=== PATIENT | female | born 1945 | race Caucasian/White ===

== ENCOUNTER 2018-04-06 10:22 | Inpatient (IN) | payer MEDICARE ==
[2018-04-06] MEDS ORDERED: Sodium Chloride 0.9% 2.5 ML Syringe FLUSH PRN ×2 (10:36→14:18)
[2018-04-06] MEDS ORDERED: Sodium Chloride 0.9% 10 ML Syringe FLUSH PRN ×2 (10:36→14:18)
[2018-04-06] MEDS ORDERED: Nitroglycerin 2% Oint 1 GM UD Packet TOP ONE (10:38)
--- NOTE | 2018-04-06 10:44 | EDM.PDOC ---
ED HPI GENERAL MEDICAL PROBLEM - General Chief Complaint: Respiratory Problem Stated Complaint: AMBULANCE Time Seen by Provider: 04/06/18 10:25 - History of Present Illness INITIAL COMMENTS - FREE TEXT/NARRATIVE: HISTORY AND PHYSICAL: History of present illness: The patient is a 72-year-old female who follows at [facility] with Dr. Ratliff and has a history of diabetes hypertension hypothyroidism and CHF who is scheduled to meet with Dr. Sarmiento next week for the start of hospice care and presents via EMS complaints of 2 weeks of lower extremity edema and progressive shortness of breath for the last 2 weeks. She is currently taking Lasix 40 mg a day and says that that dose was adjusted by her provider recently and she is not having chest pain fevers chills cough abdominal pain vomiting or diarrhea. When asked why she specifically here today she says she is just tired of being short of breath and tired of being sick. The patient has been eating and drinking her norm and she says that she does produce urine with the Lasix but it doesn't seem to be as much as it should be. The patient sleeps in a recliner every night because of her shortness of breath and says that she can't get comfortable in bed. She has no specific leg pain but has the lower extremity edema which has been progressive. No neurosensory changes in her extremities neck or back pain and no recent trauma. EMS could not get an IV [place] no medications were given in route. Review of systems: As per history of present illness and below otherwise all systems reviewed and negative. Past medical history: As per history of present illness and as reviewed below otherwise noncontributory. Surgical history: As per history of present illness and as reviewed below otherwise noncontributory. Social history: No reported history of drug or alcohol abuse. Family history: As per history of present illness and as reviewed below otherwise noncontributory. Physical exam: General: Well-developed well-nourished mildly overweight female who is nontoxic and vital signs are noted by me. The patient is speaking clearly and easily without breathlessness. HEENT: Atraumatic, normocephalic, negative for conjunctival pallor or scleral icterus, mucous membranes moist, throat clear, neck supple, nontender, trachea midline. Lungs: Clear to auscultation in the [place] and in the bases there are rails bilaterally approximately 1/4-1/3 up, there is no work of breathing stridor or wheezing, breath sounds equal bilaterally, chest nontender. Heart: S1S2, regular rhythm slightly tachycardic rate of my evaluation but no overt murmurs were appreciated Abdomen: Soft, nondistended, nontender. Tightly hypoactive bowel sounds Negative for costovertebral tenderness. Pelvis: Stable nontender. Genitourinary: Deferred. Rectal: Deferred. Extremities: Atraumatic, negative for cords or calf pain. Neurovascular unremarkable. There is pitting edema from the knees to the feet to to 3+ without leg asymmetry and there are no bones appreciated. Cap refill and temperature are normal on palpation Neuro: Awake, alert, oriented. Cranial nerves II through XII unremarkable. Cerebellum unremarkable. Motor and sensory unremarkable throughout. Exam nonfocal. Skin: There is normal turgor and no evidence of any diaphoresis Diagnostics: EKG CBC CMP BNP INR troponin chest x-ray [employer]A [employer]: IV O2 monitor nitro paste Lasix Heart Rate has normalized while in the ED. We'll continue to monitor the patient 's vitals and testing results for disposition Patient is feeling improved with the Nitropaste. She was assisted up to the bathroom and back and did not get short of breath. She was given a sandwich and also feels better from that standpoint and we are currently awaiting the remainder of the tests and we'll disposition for admission 1215: This was discussed with our hospitalist Dr. Still who accepts the patient for observation telemetry admission. She would like me to give a dose of Lasix. I discussed testing results with the patient and son at bedside and they are aware of care plan for admission. Patient overall looks much improved. Impression: Progressive shortness of breath with peripheral edema, exacerbation of CHF Definitive disposition and diagnosis as appropriate pending reevaluation and review of above. - Related Data Allergies Allergy/AdvReac Type Severity Reaction Status Date / Time morphine Allergy Cannot Verified 04/06/18 10:33 Remember Sulfa (Sulfonamide Allergy Cannot Verified 04/06/18 10:33 Antibiotics) Remember Home Meds: Home Meds Furosemide 40 mg PO DAILY 04/06/18 [History] LORazepam [LORazepam Intensol] 0.5 mg PO Q2HR PRN 04/06/18 [History] Liothyronine [Cytomel] 1.5 mcg PO DAILY 04/06/18 [History] Ondansetron [Zofran ODT] 4 mg PO Q6H PRN 04/06/18 [History] Sennosides [Senna] 1 tab PO BID 04/06/18 [History] oxyCODONE HCl [Oxycodone HCl] 1 mg PO Q2H PRN 04/06/18 [History] ED ROS GENERAL - Review of Systems Review Of Systems: ROS reveals no pertinent complaints other than HPI. ED EXAM, GENERAL - Physical Exam Exam: See Below (see dictation) Course - Vital Signs Last Recorded V/S: Last Vital Signs Temp 36.3 C 04/06/18 10:33 Pulse 86 04/06/18 11:29 Resp 16 04/06/18 11:29 BP 152/101 H 04/06/18 10:33 Pulse Ox 97 04/06/18 11:29 - Orders/Labs/Meds Orders: Active Orders 24 hr Category Date Time Status Patient Status [ADT] Stat ADT 04/06/18 12:17 Ordered Cardiac Monitoring [RC] . DIRECTED Care 04/06/18 10:36 Active EKG Documentation Completion [RC] STAT Care 04/06/18 10:36 Active Oxygen Therapy, ED [RC] ASDIRECTED Care 04/06/18 10:36 Active Pulse Oximetry [RC] ASDIRECTED Care 04/06/18 10:36 Active Chest 1V Frontal [CR] Stat Exams 04/06/18 10:36 Taken UA W/MICROSCOPIC [URIN] Stat Lab 04/06/18 12:04 Ordered Furosemide [Lasix] Med 04/06/18 12:17 Once 60 mg IVPUSH NOW ONE Sodium Chloride 0.9% [Saline Flush] Med 04/06/18 10:36 Active 10 ml FLUSH ASDIRECTED PRN Sodium Chloride 0.9% [Saline Flush] Med 04/06/18 10:36 Active 2.5 ml FLUSH ASDIRECTED PRN Saline Lock Insert [OM.PC] Stat Oth 04/06/18 10:36 Ordered Medication Orders Sodium Chloride (Saline Flush) 10 ml FLUSH ASDIRECTED PRN PRN Reason: Keep Vein Open Last Admin: 04/06/18 10:52 Dose: 10 ml Sodium Chloride (Saline Flush) 2.5 ml FLUSH ASDIRECTED PRN PRN Reason: Keep Vein Open Last Admin: 04/06/18 10:52 Dose: 2.5 ml Labs: Laboratory Tests 04/06/18 04/06/18 04/06/18 Range/Units 10:55 10:55 10:55 WBC 11.78 H (4.0-11.0) K/uL RBC 4.65 (4.30-5.90) M/uL Hgb 13.1 (12.0-16.0) g/dL Hct 41.0 (36.0-46.0) % MCV 88.2 (80.0-98.0) fL MCH 28.2 (27.0-32.0) pg MCHC 32.0 (31.0-37.0) g/dL RDW Std Deviation 56.5 (28.0-62.0) fl RDW Coeff of Jalen 18 H (11.0-15.0) % Plt Count 242 (150-400) K/uL MPV 10.90 (7.40-12.00) fL Neut % (Auto) 75.4 (48.0-80.0) % Lymph % (Auto) 15.8 L (16.0-40.0) % [place] % (Auto) 7.1 (0.0-15.0) % Eos % (Auto) 1.5 (0.0-7.0) % Baso % (Auto) 0.2 (0.0-1.5) % Neut # (Auto) 8.9 H (1.4-5.7) K/uL Lymph # (Auto) 1.9 (0.6-2.4) K/uL [place] # (Auto) 0.8 (0.0-0.8) K/uL Eos # (Auto) 0.2 (0.0-0.7) K/uL Baso # (Auto) 0.0 (0.0-0.1) K/uL Nucleated RBC % 0.0 /100WBC Nucleated RBCs # 0 K/uL INR 1.17 Sodium 136 (136-145) mmol/L Potassium 4.1 (3.5-5.1) mmol/L Chloride 102 (98-107) mmol/L Carbon Dioxide 27.3 (21.0-32.0) mmol/L BUN 26 H (7.0-18.0) mg/dL Creatinine 1.3 H (0.6-1.0) mg/dL Est Cr Clr Drug Dosing 36.62 mL/min Estimated GFR (MDRD) 40.3 ml/min Glucose 247 H (74-106) mg/dL Calcium 8.3 L (8.5-10.1) mg/dL Total Bilirubin 0.8 (0.2-1.0) mg/dL AST 13 L (15-37) IU/L ALT 19 (14-63) IU/L Alkaline Phosphatase 109 (46-116) U/L Troponin I < 0.050 (0.000-0.056) ng/mL B-Natriuretic Peptide (<100) PG/ML Total Protein 6.3 L (6.4-8.2) g/dL Albumin 2.8 L (3.4-5.0) g/dL Globulin 3.5 (2.0-3.5) g/dL Albumin/Globulin Ratio 0.8 L (1.3-2.8) Urine Color Urine Appearance Urine pH (5.0-8.0) Ur Specific [place] (1.001-1.035) Urine Protein (NEGATIVE) mg/dL Urine Glucose (UA) (NEGATIVE) mg/dL Urine Ketones (NEGATIVE) mg/dL Urine Occult Blood (NEGATIVE) Urine Nitrite (NEGATIVE) Urine Bilirubin (NEGATIVE) Urine Urobilinogen (<2.0) EU/dL Ur Leukocyte Esterase (NEGATIVE) Urine RBC (0-2/HPF) Urine WBC (0-5/HPF) Ur Epithelial Cells (NONE-FEW) Urine Bacteria (NEGATIVE) 04/06/18 04/06/18 Range/Units 10:55 12:04 WBC (4.0-11.0) K/uL RBC (4.30-5.90) M/uL Hgb (12.0-16.0) g/dL Hct (36.0-46.0) % MCV (80.0-98.0) fL MCH (27.0-32.0) pg MCHC (31.0-37.0) g/dL RDW Std Deviation (28.0-62.0) fl RDW Coeff of Jalen (11.0-15.0) % Plt Count (150-400) K/uL MPV (7.40-12.00) fL Neut % (Auto) (48.0-80.0) % Lymph % (Auto) (16.0-40.0) % [place] % (Auto) (0.0-15.0) % Eos % (Auto) (0.0-7.0) % Baso % (Auto) (0.0-1.5) % Neut # (Auto) (1.4-5.7) K/uL Lymph # (Auto) (0.6-2.4) K/uL [place] # (Auto) (0.0-0.8) K/uL Eos # (Auto) (0.0-0.7) K/uL Baso # (Auto) (0.0-0.1) K/uL Nucleated RBC % /100WBC Nucleated RBCs # K/uL INR Sodium (136-145) mmol/L Potassium (3.5-5.1) mmol/L Chloride (98-107) mmol/L Carbon Dioxide (21.0-32.0) mmol/L BUN (7.0-18.0) mg/dL Creatinine (0.6-1.0) mg/dL Est Cr Clr Drug Dosing mL/min Estimated GFR (MDRD) ml/min Glucose (74-106) mg/dL Calcium (8.5-10.1) mg/dL Total Bilirubin (0.2-1.0) mg/dL AST (15-37) IU/L ALT (14-63) IU/L Alkaline Phosphatase (46-116) U/L Troponin I (0.000-0.056) ng/mL B-Natriuretic Peptide 3166 H (<100) PG/ML Total Protein (6.4-8.2) g/dL Albumin (3.4-5.0) g/dL Globulin (2.0-3.5) g/dL Albumin/Globulin Ratio (1.3-2.8) Urine Color YELLOW Urine Appearance CLEAR Urine pH 6.0 (5.0-8.0) Ur Specific [place] 1.015 (1.001-1.035) Urine Protein TRACE (NEGATIVE) mg/dL Urine Glucose (UA) NEGATIVE (NEGATIVE) mg/dL Urine Ketones NEGATIVE (NEGATIVE) mg/dL Urine Occult Blood NEGATIVE (NEGATIVE) Urine Nitrite NEGATIVE (NEGATIVE) Urine Bilirubin NEGATIVE (NEGATIVE) Urine Urobilinogen 0.2 (<2.0) EU/dL Ur Leukocyte Esterase NEGATIVE (NEGATIVE) Urine RBC 0-2 (0-2/HPF) Urine WBC 0-3 (0-5/HPF) Ur Epithelial Cells FEW (NONE-FEW) Urine Bacteria FEW (NEGATIVE) Meds: Medications Generic Name Dose Route Start Last Admin Trade Name Leighann PRN Reason Stop Dose Admin Sodium Chloride 10 ml 04/06/18 10:36 04/06/18 10:52 Saline Flush FLUSH 10 ml ASDIRECTED PRN Administration Keep Vein Open Sodium Chloride 2.5 ml 04/06/18 10:36 04/06/18 10:52 Saline Flush FLUSH 2.5 ml ASDIRECTED PRN Administration Keep Vein Open Discontinued Medications Generic Name Dose Route Start Last Admin Trade Name Freq PRN Reason Stop Dose Admin Lidocaine HCl Confirm 04/06/18 11:04 Xylocaine-Mpf 1% Administered 04/06/18 11:05 Dose 5 mls @ as directed .ROUTE .STK-MED ONE Lidocaine HCl 5 ml 04/06/18 11:05 04/06/18 11:06 Xylocaine-Mpf 1% INJECT 04/06/18 11:06 5 ml ONETIME ONE Administration Nitroglycerin 1 gm 04/06/18 10:38 04/06/18 10:49 Nitro-Bid 2% TOP 04/06/18 10:39 1 gm ONETIME ONE Administration Departure - Departure Time of Disposition: 12:21 Disposition: Refer to Observation Condition: Good Clinical Impression: Congestive heart failure Qualifiers: Heart failure type: unspecified Heart failure chronicity: acute on chronic Qualified Code(s): I50.9 - Heart failure, unspecified - Discharge Information Referrals: Chuck Sarmiento MD [Primary Care Provider] - Forms: ED Department Discharge - My Orders Last 24 Hours: My Active Orders 04/06/18 10:36 Cardiac Monitoring [RC] . DIRECTED EKG Documentation Completion [RC] STAT Oxygen Therapy, ED [RC] ASDIRECTED Pulse Oximetry [RC] ASDIRECTED Chest 1V Frontal [CR] Stat Sodium Chloride 0.9% [Saline Flush] 10 ml FLUSH ASDIRECTED PRN Sodium Chloride 0.9% [Saline Flush] 2.5 ml FLUSH ASDIRECTED PRN Saline Lock Insert [OM.PC] Stat 04/06/18 12:04 UA W/MICROSCOPIC [URIN] Stat 04/06/18 12:17 Patient Status [ADT] Stat Furosemide [Lasix] 60 mg IVPUSH NOW ONE - Assessment/Plan Last 24 Hours: My Active Orders 04/06/18 10:36 Cardiac Monitoring [RC] . DIRECTED EKG Documentation Completion [RC] STAT Oxygen Therapy, ED [RC] ASDIRECTED Pulse Oximetry [RC] ASDIRECTED Chest 1V Frontal [CR] Stat Sodium Chloride 0.9% [Saline Flush] 10 ml FLUSH ASDIRECTED PRN Sodium Chloride 0.9% [Saline Flush] 2.5 ml FLUSH ASDIRECTED PRN Saline Lock Insert [OM.PC] Stat 04/06/18 12:04 UA W/MICROSCOPIC [URIN] Stat 04/06/18 12:17 Patient Status [ADT] Stat Furosemide [Lasix] 60 mg IVPUSH NOW ONE
[2018-04-06 11:39] LABS: CHLORIDE,CL 102 mmol/L (98-107); SODIUM,NA 136 mmol/L (136-145)
--- NOTE | 2018-04-06 12:08 | PCM.SN ---
- Free Text/Narrative Note: IV start request due to inability to obtain access by staff in EOD. Attempts to R FA and hand unsuccessful. IV access to R FA with 22 g IV catheter obtained on third attempt. Blood return observed and flushes easily. Pt trish well with lidocaine SQ prior to attempts.
[2018-04-06] MEDS ORDERED: Furosemide 40 MG/4 ML VIAL IVPUSH ONE (12:17)
--- NOTE | 2018-04-06 13:42 | PCM.HP ---
H&P History of Present Illness - General Date of Service: 04/06/18 Admit Problem/Dx: Admission Diagnosis/Problem Admission Diagnosis/Problem Congestive heart failure Source of Information: Patient - History of Present Illness Initial Comments - Free Text/Narative: Patient is 72 years old female old says she was on hospice for the month, and due to advanced heart failure , with coronary artery disease, status post CABG, who traveled from [place] to [facility] 2 weeks ago presented to hospital due to increased shortness of breath. Patient was put in hospice because she was told her ejection fraction is 10%, but after she was placed in hospice she continued to improved and she was feeling pretty well until lately when she became short of breath. Patient is able to ambulate on her own and all her medications were stopped 1 1/2 mo ago when she was placed on hospice . In July she drove herself with her truck to [place] and [place]. She also has history of arterial fibrillation and used to be on chronic anticoagulation with eliquis . Denies chest pain. She would like to come off hospice and try to be medically optimized and see it operations specialist on Monday. She wants to have Sidhu catheter and diuresed to get back to her normal weight, denies fever, denies chills denies chest pain. She gained 20 lbs fluid overload since she stopped her home medications Onset of Symptoms: Reports: Gradual Location: Reports: Chest - Related Data Allergies/Adverse Reactions: Allergies Allergy/AdvReac Type Severity Reaction Status Date / Time morphine Allergy Cannot Verified 04/06/18 10:33 Remember Sulfa (Sulfonamide Allergy Cannot Verified 04/06/18 10:33 Antibiotics) Remember Home Medications: Home Meds Furosemide 40 mg PO DAILY 04/06/18 [History] LORazepam [LORazepam Intensol] 0.5 mg PO Q2HR PRN 04/06/18 [History] Levothyroxine 150 mcg PO ACBREAKFAST 04/06/18 [History] Liothyronine [Cytomel] 1.5 tab PO DAILY 04/06/18 [History] Ondansetron [Zofran ODT] 4 mg PO Q6H PRN 04/06/18 [History] Sennosides [Senna] 1 tab PO DAILY 04/06/18 [History] oxyCODONE HCl [Oxycodone HCl] 1 mg PO Q2H PRN 04/06/18 [History] Past Medical History Cardiovascular History: Reports: Heart Failure, Hypertension Endocrine/Metabolic History: Reports: Diabetes, Type II - Infectious Disease History Infectious Disease History: Reports: None - Past Surgical History GI Surgical History: Reports: Bariatric Procedure Social & Family History - Family History Family Medical History: Noncontributory - Tobacco Use Smoking Status *Q: Never Smoker - Recreational Drug Use Recreational Drug Use: No H&P Review of Systems - Review of Systems: Review Of Systems: See Below General: Reports: Weight Gain HEENT: Reports: No Symptoms Pulmonary: Reports: Shortness of Breath Cardiovascular: Reports: Dyspnea on Exertion, Orthopnea Gastrointestinal: Reports: No Symptoms Musculoskeletal: Reports: No Symptoms Skin: Reports: No Symptoms Psychiatric: Reports: No Symptoms Neurological: Reports: No Symptoms Hematologic/Lymphatic: Reports: No Symptoms Immunologic: Reports: No Symptoms Exam - Exam Exam: See Below - Vital Signs Vital Signs: Last Vital Signs Temp 97.4 F 04/06/18 10:33 Pulse 76 04/06/18 12:34 Resp 16 04/06/18 12:34 BP 116/78 04/06/18 12:34 Pulse Ox 98 04/06/18 12:34 Weight: 213 lb 6.519 oz - Exam General: Alert, Oriented HEENT: Conjunctiva Clear Neck: Supple, Trachea Midline, JVD Lungs: Crackles Cardiovascular: Regular Rate, Regular Rhythm, Normal S1, Normal S2, Gallop/S3 GI/Abdominal Exam: Normal Bowel Sounds Back Exam: Normal Inspection Extremities: Pedal Edema (leg edema 3+) - Patient Data Lab Results Last 24 hrs: Laboratory Results - last 24 hr 04/06/18 04/06/18 04/06/18 Range/Units 10:55 10:55 10:55 WBC 11.78 H (4.0-11.0) K/uL RBC 4.65 (4.30-5.90) M/uL Hgb 13.1 (12.0-16.0) g/dL Hct 41.0 (36.0-46.0) % MCV 88.2 (80.0-98.0) fL MCH 28.2 (27.0-32.0) pg MCHC 32.0 (31.0-37.0) g/dL RDW Std Deviation 56.5 (28.0-62.0) fl RDW Coeff of Jalen 18 H (11.0-15.0) % Plt Count 242 (150-400) K/uL MPV 10.90 (7.40-12.00) fL Neut % (Auto) 75.4 (48.0-80.0) % Lymph % (Auto) 15.8 L (16.0-40.0) % [place] % (Auto) 7.1 (0.0-15.0) % Eos % (Auto) 1.5 (0.0-7.0) % Baso % (Auto) 0.2 (0.0-1.5) % Neut # (Auto) 8.9 H (1.4-5.7) K/uL Lymph # (Auto) 1.9 (0.6-2.4) K/uL [place] # (Auto) 0.8 (0.0-0.8) K/uL Eos # (Auto) 0.2 (0.0-0.7) K/uL Baso # (Auto) 0.0 (0.0-0.1) K/uL Nucleated RBC % 0.0 /100WBC Nucleated RBCs # 0 K/uL INR 1.17 Sodium 136 (136-145) mmol/L Potassium 4.1 (3.5-5.1) mmol/L Chloride 102 (98-107) mmol/L Carbon Dioxide 27.3 (21.0-32.0) mmol/L BUN 26 H (7.0-18.0) mg/dL Creatinine 1.3 H (0.6-1.0) mg/dL Est Cr Clr Drug Dosing 36.62 mL/min Estimated GFR (MDRD) 40.3 ml/min Glucose 247 H (74-106) mg/dL Calcium 8.3 L (8.5-10.1) mg/dL Total Bilirubin 0.8 (0.2-1.0) mg/dL AST 13 L (15-37) IU/L ALT 19 (14-63) IU/L Alkaline Phosphatase 109 (46-116) U/L Troponin I < 0.050 (0.000-0.056) ng/mL B-Natriuretic Peptide (<100) PG/ML Total Protein 6.3 L (6.4-8.2) g/dL Albumin 2.8 L (3.4-5.0) g/dL Globulin 3.5 (2.0-3.5) g/dL Albumin/Globulin Ratio 0.8 L (1.3-2.8) Urine Color Urine Appearance Urine pH (5.0-8.0) Ur Specific [place] (1.001-1.035) Urine Protein (NEGATIVE) mg/dL Urine Glucose (UA) (NEGATIVE) mg/dL Urine Ketones (NEGATIVE) mg/dL Urine Occult Blood (NEGATIVE) Urine Nitrite (NEGATIVE) Urine Bilirubin (NEGATIVE) Urine Urobilinogen (<2.0) EU/dL Ur Leukocyte Esterase (NEGATIVE) Urine RBC (0-2/HPF) Urine WBC (0-5/HPF) Ur Epithelial Cells (NONE-FEW) Urine Bacteria (NEGATIVE) 04/06/18 04/06/18 Range/Units 10:55 12:04 WBC (4.0-11.0) K/uL RBC (4.30-5.90) M/uL Hgb (12.0-16.0) g/dL Hct (36.0-46.0) % MCV (80.0-98.0) fL MCH (27.0-32.0) pg MCHC (31.0-37.0) g/dL RDW Std Deviation (28.0-62.0) fl RDW Coeff of Jalen (11.0-15.0) % Plt Count (150-400) K/uL MPV (7.40-12.00) fL Neut % (Auto) (48.0-80.0) % Lymph % (Auto) (16.0-40.0) % [place] % (Auto) (0.0-15.0) % Eos % (Auto) (0.0-7.0) % Baso % (Auto) (0.0-1.5) % Neut # (Auto) (1.4-5.7) K/uL Lymph # (Auto) (0.6-2.4) K/uL [place] # (Auto) (0.0-0.8) K/uL Eos # (Auto) (0.0-0.7) K/uL Baso # (Auto) (0.0-0.1) K/uL Nucleated RBC % /100WBC Nucleated RBCs # K/uL INR Sodium (136-145) mmol/L Potassium (3.5-5.1) mmol/L Chloride (98-107) mmol/L Carbon Dioxide (21.0-32.0) mmol/L BUN (7.0-18.0) mg/dL Creatinine (0.6-1.0) mg/dL Est Cr Clr Drug Dosing mL/min Estimated GFR (MDRD) ml/min Glucose (74-106) mg/dL Calcium (8.5-10.1) mg/dL Total Bilirubin (0.2-1.0) mg/dL AST (15-37) IU/L ALT (14-63) IU/L Alkaline Phosphatase (46-116) U/L Troponin I (0.000-0.056) ng/mL B-Natriuretic Peptide 3166 H (<100) PG/ML Total Protein (6.4-8.2) g/dL Albumin (3.4-5.0) g/dL Globulin (2.0-3.5) g/dL Albumin/Globulin Ratio (1.3-2.8) Urine Color YELLOW Urine Appearance CLEAR Urine pH 6.0 (5.0-8.0) Ur Specific [place] 1.015 (1.001-1.035) Urine Protein TRACE (NEGATIVE) mg/dL Urine Glucose (UA) NEGATIVE (NEGATIVE) mg/dL Urine Ketones NEGATIVE (NEGATIVE) mg/dL Urine Occult Blood NEGATIVE (NEGATIVE) Urine Nitrite NEGATIVE (NEGATIVE) Urine Bilirubin NEGATIVE (NEGATIVE) Urine Urobilinogen 0.2 (<2.0) EU/dL Ur Leukocyte Esterase NEGATIVE (NEGATIVE) Urine RBC 0-2 (0-2/HPF) Urine WBC 0-3 (0-5/HPF) Ur Epithelial Cells FEW (NONE-FEW) Urine Bacteria FEW (NEGATIVE) Result Diagrams: 04/06/18 10:55 04/06/18 10:55 EKG INTERPRETATION EKG Date: 04/06/18 Rhythm: NSR - Problem List (1) Systolic CHF, acute on chronic SNOMED Code(s): 949866066, 107722155 ICD Code: I50.23 - ACUTE ON CHRONIC SYSTOLIC (CONGESTIVE) HEART FAILURE Status: Acute Current Visit: Yes (2) CAD (coronary artery disease) of artery bypass graft SNOMED Code(s): 071934276, 53283013, 782770865, 311418089, 771518418 ICD Code: I25.810 - ATHEROSCLEROSIS OF CABG W/O ANGINA PECTORIS Status: Acute Current Visit: Yes (3) Paroxysmal A-fib SNOMED Code(s): 862042891 ICD Code: I48.0 - PAROXYSMAL ATRIAL FIBRILLATION Status: Acute Current Visit: Yes (4) Diabetes mellitus SNOMED Code(s): 73286392 ICD Code: E11.9 - TYPE 2 DIABETES MELLITUS WITHOUT COMPLICATIONS Status: Acute Current Visit: Yes (5) Hypothyroidism SNOMED Code(s): 78873516 ICD Code: E03.9 - HYPOTHYROIDISM, UNSPECIFIED Status: Acute Current Visit : Yes Problem List Initiated/Reviewed/Updated: Yes Orders Last 24hrs: Active Orders 24 hr Category Date Time Status Patient Status [ADT] Stat ADT 04/06/18 12:17 Active Cardiac Monitoring [RC] . DIRECTED Care 04/06/18 10:36 Active EKG Documentation Completion [RC] STAT Care 04/06/18 10:36 Active Pulse Oximetry [RC] ASDIRECTED Care 04/06/18 10:36 Active Telemetry Monitoring [Cardiac Monitoring] [RC] . Care 04/06/18 13:32 Active DIRECTED Chest 1V Frontal [CR] Stat Exams 04/06/18 10:36 Taken UA W/MICROSCOPIC [URIN] Stat Lab 04/06/18 12:04 Ordered Sodium Chloride 0.9% [Saline Flush] Med 04/06/18 10:36 Active 10 ml FLUSH ASDIRECTED PRN Sodium Chloride 0.9% [Saline Flush] Med 04/06/18 10:36 Active 2.5 ml FLUSH ASDIRECTED PRN Saline Lock Insert [OM.PC] Stat Oth 04/06/18 10:36 Ordered Medication Orders Sodium Chloride (Saline Flush) 10 ml FLUSH ASDIRECTED PRN PRN Reason: Keep Vein Open Last Admin: 04/06/18 10:52 Dose: 10 ml Sodium Chloride (Saline Flush) 2.5 ml FLUSH ASDIRECTED PRN PRN Reason: Keep Vein Open Last Admin: 04/06/18 10:52 Dose: 2.5 ml Assessment/Plan Comment:: Plan admit patient to medical telemetry and will start patient on Lasix 60 mg IV every 12 hours, we put Sidhu catheter and give patient potassium 40 mEq by mouth or daily, we'll order cardiac echo and patient may need cardiology consult on Monday. We'll also need to monitor magnesium For history of A. fib paroxysmal patient will need anticoagulation with eliquis 5 mg by mouth twice a BID For hypothyroidism patient will be restarted on her home dose of thyroid medication seen. 150 mg by mouth daily For diabetes mellitus patient will be started on insulin on sliding scale before meals and at bedtime Deconditioning patient will need physical therapy in a patient on therapy when medically stable
[2018-04-06] MEDS ORDERED: Morphine 10 MG/ML Syringe IVPUSH PRN (14:18)
[2018-04-06] MEDS ORDERED: Acetaminophen 325 MG Tab PO PRN (14:18)
[2018-04-06] MEDS ORDERED: Docusate Sodium 100 MG Cap PO PRN (14:18)
[2018-04-06] MEDS ORDERED: Ondansetron 4 MG/2 ML SDV IVPUSH PRN (14:18)
[2018-04-06] MEDS ORDERED: LORazepam Conc Solution 2 MG/ML 30 ML Bottle PO PRN (14:20)
[2018-04-06] MEDS ORDERED: Enoxaparin 40 MG/0.4 ML Syringe SUBCUT SCH (14:30)
[2018-04-06] MEDS: Furosemide 40 MG/4 ML VIAL IVPUSH SCH (20:46)
[2018-04-06] MEDS: Apixaban 5 MG Tab PO SCH (20:56)
[2018-04-06] MEDS ORDERED: cefTRIAXone 1,000 MG in Sodium Chloride 0.9% 50 ML IV SCH (21:00)
[2018-04-06] MEDS ORDERED: cefTRIAXone 1 GM in Premix Bag 1 BAG IV SCH (21:00)
[2018-04-06] MEDS ORDERED: Insulin Aspart 100 Units/ML 3 ML Pen SUBCUT SCH (21:00)
[2018-04-06] MEDS: Insulin Aspart 100 Units/ML 3 ML Pen SUBCUT SCH (21:16)
--- NOTE | 2018-04-06 21:26 | CR ---
EXAM DATE: 04/06/18 PATIENT'S AGE: 72 Patient: GLEN MILLER Facility: [place], [place] Site . Site : 1945 Study: XRay Chest [id number]/24/2018 11:28:04 AM Ordering Physician: Jag Lamas Final Report: INDICATION: Chest pain; shortness of breath. COMPARISON: None. TECHNIQUE: Portable AP chest. FINDINGS: Cardiomegaly. Status post median sternotomy. CHF with bilateral pleural effusion . Impression : Cardiomegaly. CHF with bilateral pleural effusions. Dictated by Cristo Rodriguez MD @ Apr 06 2018 11:37AM (Electronic Signature) Report Signed by Proxy. [facility]
[2018-04-07] MEDS: Insulin Aspart 100 Units/ML 3 ML Pen SUBCUT SCH ×4 (06:32→21:23)
[2018-04-07] MEDS: Levothyroxine 75 MCG Tab PO SCH (06:53)
[2018-04-07] MEDS ORDERED: Levothyroxine 100 MCG Tab PO SCH (07:30)
[2018-04-07] MEDS ORDERED: Levothyroxine 75 MCG Tab PO SCH (07:30)
[2018-04-07] MEDS ORDERED: Levothyroxine 150 MCG Tab PO SCH ×2 (07:30)
[2018-04-07] MEDS: Apixaban 5 MG Tab PO SCH ×2 (08:37→21:06)
[2018-04-07] MEDS: Potassium Chloride 20 MEQ Tab.ER PO SCH (08:37)
[2018-04-07] MEDS: Sennosides 8.6 MG Tab PO SCH (08:37)
[2018-04-07] MEDS: Furosemide 40 MG/4 ML VIAL IVPUSH SCH ×2 (10:39→20:56)
[2018-04-07] MEDS ORDERED: Diltiazem 25 MG/5 ML SDV IVPUSH ONE ×2 (11:36→21:13)
--- NOTE | 2018-04-07 13:06 | PCM.PRNOTE ---
- Free Text/Narrative Note: Anes Note I was called to perform IV access on this patietn with known difficult veins. I placed a 22 tn left forarm. Miguel Angel Shanks HEMATOLOGY NURSE
--- NOTE | 2018-04-07 14:01 | PCM.PN ---
- General Info Date of Service: 04/07/18 Subjective Update: Patient says she is feeling cold , her heart is tachycardia , EKG done showed a a flutter and heart rate goes as high as 140 I and O negative 3500 cc , Co2 on BMP is around 35 Still sob - Review of Systems General: Reports: Fatigue HEENT: Reports: No Symptoms Pulmonary: Reports: Shortness of Breath Cardiovascular: Reports: Dyspnea on Exertion, Edema Gastrointestinal: Reports: No Symptoms Genitourinary: Reports: No Symptoms Musculoskeletal: Reports: No Symptoms Skin: Reports: No Symptoms Psychiatric: Reports: No Symptoms - Patient Data Vitals - Most Recent: Last Vital Signs Temp 97.8 F 04/07/18 12:00 Pulse 89 04/07/18 12:00 Resp 18 04/07/18 12:00 BP 118/84 04/07/18 12:00 Pulse Ox 98 04/07/18 12:00 Weight - Most Recent: 196 lb 6.4 oz I&O - Last 24 Hours: Intake & Output 04/06/18 04/07/18 04/07/18 22:59 06:59 14:59 Intake Total 100 450 Output Total 1150 2600 Balance -1050 -2150 Lab Results Last 24 Hours: Laboratory Results - last 24 hr 04/06/18 04/06/18 04/06/18 Range/Units 10:55 16:24 16:44 WBC (4.0-11.0) K/uL RBC (4.30-5.90) M/uL Hgb (12.0-16.0) g/dL Hct (36.0-46.0) % MCV (80.0-98.0) fL MCH (27.0-32.0) pg MCHC (31.0-37.0) g/dL RDW Std Deviation (28.0-62.0) fl RDW Coeff of Jalen (11.0-15.0) % Plt Count (150-400) K/uL MPV (7.40-12.00) fL Neut % (Auto) (48.0-80.0) % Lymph % (Auto) (16.0-40.0) % Crenshaw % (Auto) (0.0-15.0) % Eos % (Auto) (0.0-7.0) % Baso % (Auto) (0.0-1.5) % Neut # (Auto) (1.4-5.7) K/uL Lymph # (Auto) (0.6-2.4) K/uL Crenshaw # (Auto) (0.0-0.8) K/uL Eos # (Auto) (0.0-0.7) K/uL Baso # (Auto) (0.0-0.1) K/uL Nucleated RBC % /100WBC Nucleated RBCs # K/uL Sodium (136-145) mmol/L Potassium (3.5-5.1) mmol/L Chloride (98-107) mmol/L Carbon Dioxide (21.0-32.0) mmol/L BUN (7.0-18.0) mg/dL Creatinine (0.6-1.0) mg/dL Est Cr Clr Drug Dosing mL/min Estimated GFR (MDRD) ml/min Glucose (74-106) mg/dL POC Glucose (60-110) mg/dL Hemoglobin A1c 8.1 H (4.5-6.2) % Calcium (8.5-10.1) mg/dL Phosphorus (2.6-4.7) mg/dL Magnesium (1.8-2.4) mg/dL Free T4 0.24 L (0.76-1.46) ng/dL Free T3 4.29 H (2.18-3.98) pg/mL TSH 3rd Generation 59.38 H (0.36-3.74) uIU/mL 04/06/18 04/07/18 04/07/18 Range/Units 20:35 05:40 05:40 WBC 8.84 (4.0-11.0) K/uL RBC 4.49 (4.30-5.90) M/uL Hgb 12.4 (12.0-16.0) g/dL Hct 39.7 (36.0-46.0) % MCV 88.4 (80.0-98.0) fL MCH 27.6 (27.0-32.0) pg MCHC 31.2 (31.0-37.0) g/dL RDW Std Deviation 56.3 (28.0-62.0) fl RDW Coeff of Jalen 17 H (11.0-15.0) % Plt Count 203 (150-400) K/uL MPV 11.20 (7.40-12.00) fL Neut % (Auto) 65.1 (48.0-80.0) % Lymph % (Auto) 22.2 (16.0-40.0) % Crenshaw % (Auto) 10.0 (0.0-15.0) % Eos % (Auto) 2.5 (0.0-7.0) % Baso % (Auto) 0.2 (0.0-1.5) % Neut # (Auto) 5.8 H (1.4-5.7) K/uL Lymph # (Auto) 2.0 (0.6-2.4) K/uL Crenshaw # (Auto) 0.9 H (0.0-0.8) K/uL Eos # (Auto) 0.2 (0.0-0.7) K/uL Baso # (Auto) 0.0 (0.0-0.1) K/uL Nucleated RBC % 0.0 /100WBC Nucleated RBCs # 0 K/uL Sodium 141 (136-145) mmol/L Potassium 3.4 L (3.5-5.1) mmol/L Chloride 102 (98-107) mmol/L Carbon Dioxide 35.5 H (21.0-32.0) mmol/L BUN 23 H (7.0-18.0) mg/dL Creatinine 1.2 H (0.6-1.0) mg/dL Est Cr Clr Drug Dosing 35.05 mL/min Estimated GFR (MDRD) 44.2 ml/min Glucose 118 H (74-106) mg/dL POC Glucose 145 H (60-110) mg/dL Hemoglobin A1c (4.5-6.2) % Calcium 8.0 L (8.5-10.1) mg/dL Phosphorus 3.3 (2.6-4.7) mg/dL Magnesium 1.8 (1.8-2.4) mg/dL Free T4 (0.76-1.46) ng/dL Free T3 (2.18-3.98) pg/mL TSH 3rd Generation (0.36-3.74) uIU/mL 04/07/18 04/07/18 Range/Units 06:26 11:56 WBC (4.0-11.0) K/uL RBC (4.30-5.90) M/uL Hgb (12.0-16.0) g/dL Hct (36.0-46.0) % MCV (80.0-98.0) fL MCH (27.0-32.0) pg MCHC (31.0-37.0) g/dL RDW Std Deviation (28.0-62.0) fl RDW Coeff of Jalen (11.0-15.0) % Plt Count (150-400) K/uL MPV (7.40-12.00) fL Neut % (Auto) (48.0-80.0) % Lymph % (Auto) (16.0-40.0) % Crenshaw % (Auto) (0.0-15.0) % Eos % (Auto) (0.0-7.0) % Baso % (Auto) (0.0-1.5) % Neut # (Auto) (1.4-5.7) K/uL Lymph # (Auto) (0.6-2.4) K/uL Crenshaw # (Auto) (0.0-0.8) K/uL Eos # (Auto) (0.0-0.7) K/uL Baso # (Auto) (0.0-0.1) K/uL Nucleated RBC % /100WBC Nucleated RBCs # K/uL Sodium (136-145) mmol/L Potassium (3.5-5.1) mmol/L Chloride (98-107) mmol/L Carbon Dioxide (21.0-32.0) mmol/L BUN (7.0-18.0) mg/dL Creatinine (0.6-1.0) mg/dL Est Cr Clr Drug Dosing mL/min Estimated GFR (MDRD) ml/min Glucose (74-106) mg/dL POC Glucose 108 182 H (60-110) mg/dL Hemoglobin A1c (4.5-6.2) % Calcium (8.5-10.1) mg/dL Phosphorus (2.6-4.7) mg/dL Magnesium (1.8-2.4) mg/dL Free T4 (0.76-1.46) ng/dL Free T3 (2.18-3.98) pg/mL TSH 3rd Generation (0.36-3.74) uIU/mL Med Orders - Current: Current Medications Acetaminophen (Tylenol) 650 mg PO Q4H PRN PRN Reason: Pain (Mild 1-3)/fever Apixaban (Eliquis) 5 mg PO BID [facility] Last Admin: 04/07/18 08:37 Dose: 5 mg Docusate Sodium (Colace) 100 mg PO BID PRN PRN Reason: Constipation Furosemide (Lasix) 40 mg IVPUSH BID [facility] Ceftriaxone Sodium 1 gm/ (Sodium Chloride) 50 mls @ 100 mls/hr IV Q24H [facility] Insulin Aspart (Novolog) 0 unit SUBCUT QIDACANDBED [facility]; Protocol Last Admin: 04/07/18 12:29 Dose: 2 units Levothyroxine Sodium (Levothyroxine) 150 mcg PO ACBREAKFAST [facility] Last Admin: 04/07/18 06:53 Dose: 150 mcg Liothyronine Sodium (Cytomel) 37.5 mcg PO DAILY [facility] Last Admin: 04/07/18 08:38 Dose: 37.5 mcg Lorazepam (Ativan) 0.5 mg PO Q2HR PRN PRN Reason: Anxiety Ondansetron HCl (Zofran) 4 mg IVPUSH Q4H PRN PRN Reason: Nausea Potassium Chloride (Klor-Con M20) 40 meq PO DAILY [facility] Last Admin: 04/07/18 08:37 Dose: 40 meq Senna (Senna) 8.6 mg PO DAILY [facility] Last Admin: 04/07/18 08:37 Dose: 8.6 mg Sodium Chloride (Saline Flush) 10 ml FLUSH ASDIRECTED PRN PRN Reason: Keep Vein Open Last Admin: 04/06/18 10:52 Dose: 10 ml Sodium Chloride (Saline Flush) 2.5 ml FLUSH ASDIRECTED PRN PRN Reason: Keep Vein Open Last Admin: 04/06/18 10:52 Dose: 2.5 ml Sodium Chloride (Saline Flush) 10 ml FLUSH ASDIRECTED PRN PRN Reason: Keep Vein Open Sodium Chloride (Saline Flush) 2.5 ml FLUSH ASDIRECTED PRN PRN Reason: Keep Vein Open Discontinued Medications Diltiazem HCl (Diltiazem) 20 mg IVPUSH ONETIME ONE Stop: 04/07/18 11:37 Last Admin: 04/07/18 12:18 Dose: 20 mg Enoxaparin Sodium (Lovenox) 40 mg SUBCUT Q24H [facility] Last Admin: 04/06/18 15:30 Dose: 40 mg Furosemide (Lasix) 60 mg IVPUSH NOW ONE Stop: 04/06/18 12:18 Last Admin: 04/06/18 12:24 Dose: 60 mg Furosemide (Lasix) 80 mg IVPUSH BID [facility] Last Admin: 04/07/18 10:39 Dose: 80 mg Lidocaine HCl (Xylocaine-Mpf 1%) Confirm Administered Dose 5 mls @ as directed .ROUTE .STK-MED ONE Stop: 04/06/18 11:05 Last Admin: 04/06/18 12:32 Dose: Not Given Ceftriaxone Sodium/Dextrose 1 (gm/ Premix) 50 mls @ 100 mls/hr IV Q24H [facility] Last Infusion: 04/06/18 22:10 Dose: Infused Lidocaine HCl (Xylocaine-Mpf 1%) Confirm Administered Dose 5 mls @ as directed .ROUTE .STK-MED ONE Stop: 04/07/18 09:12 Insulin Aspart (Novolog) 0 unit SUBCUT ACBREAKFASTANDBED [facility]; Protocol Levothyroxine Sodium (Levothyroxine) 150 mcg PO ACBREAKFAST [facility] Levothyroxine Sodium (Levothyroxine) 75 mcg PO ACBREAKFAST [facility] Levothyroxine Sodium (Synthroid) 100 mcg PO ACBREAKFAST [facility] Lidocaine HCl (Xylocaine-Mpf 1%) 5 ml INJECT ONETIME ONE Stop: 04/06/18 11:06 Last Admin: 04/06/18 11:06 Dose: 5 ml Morphine Sulfate (Morphine) 2 mg IVPUSH Q2H PRN PRN Reason: Pain (severe 7-10) Stop: 04/07/18 14:19 Nitroglycerin (Nitro-Bid 2%) 1 gm TOP ONETIME ONE Stop: 04/06/18 10:39 Last Admin: 04/06/18 10:49 Dose: 1 gm - Exam General: Alert, Oriented HEENT: Pupils Equal, Pupils Reactive Neck: Supple, Trachea Midline Lungs: Clear to Auscultation Cardiovascular: Regular Rhythm, Tachycardia GI/Abdominal Exam: Normal Bowel Sounds, Soft, Non-Tender, No Organomegaly Back Exam: Normal Inspection Extremities: Pedal Edema Skin: Warm, Dry Neurological: No New Focal Deficit Psy/Mental Status: Alert, Normal Affect - Problem List & Annotations (1) Systolic CHF, acute on chronic SNOMED Code(s): 669281867, 841727273 Code(s): I50.23 - ACUTE ON CHRONIC SYSTOLIC (CONGESTIVE) HEART FAILURE Status: Acute Current Visit: Yes (2) CAD (coronary artery disease) of artery bypass graft SNOMED Code(s): 435058313, 73867760, 398641799, 881645851, 138056592 Code(s): I25.810 - ATHEROSCLEROSIS OF CABG W/O ANGINA PECTORIS Status: Acute Current Visit: Yes (3) Paroxysmal A-fib SNOMED Code(s): 932893392 Code(s): I48.0 - PAROXYSMAL ATRIAL FIBRILLATION Status: Acute Current Visit: Yes (4) Diabetes mellitus SNOMED Code(s): 81322376 Code(s): E11.9 - TYPE 2 DIABETES MELLITUS WITHOUT COMPLICATIONS Status: Acute Current Visit: Yes (5) Hypothyroidism SNOMED Code(s): 11254094 Code(s): E03.9 - HYPOTHYROIDISM, UNSPECIFIED Status: Acute Current Visit : Yes - Problem List Review Problem List Initiated/Reviewed/Updated: Yes - My Orders Last 24 Hours: My Active Orders 04/06/18 13:32 Telemetry Monitoring [Cardiac Monitoring] [RC] . DIRECTED 04/06/18 14:18 Cardiac Monitoring [RC] CONTINUOUS Oxygen Therapy [RC] PRN Pulse Oximetry [RC] PRN Up ad Carito [RC] ASDIRECTED Vital Signs [RC] Q4H PT Evaluation and Treatment [CONS] Routine Acetaminophen [Tylenol] 650 mg PO Q4H PRN Docusate Sodium [Colace] 100 mg PO BID PRN Ondansetron [Zofran] 4 mg IVPUSH Q4H PRN Sodium Chloride 0.9% [Saline Flush] 10 ml FLUSH ASDIRECTED PRN Sodium Chloride 0.9% [Saline Flush] 2.5 ml FLUSH ASDIRECTED PRN Peripheral IV Insertion Adult [OM.PC] Routine Saline Lock Insert [OM.PC] Routine Sequential Compression Device [OM.PC] Per Unit Routine 04/06/18 14:20 LORazepam [Ativan] 0.5 mg PO Q2HR PRN 04/06/18 15:18 Code Status [Resuscitation Status] Routine 04/06/18 16:38 Echo Comp wo Cont [US] Stat 04/06/18 16:39 Daily Weight [Height and Weight] [RC] DAILY Intake and Output Strict [RC] Q12H 04/06/18 21:00 Apixaban [Eliquis] 5 mg PO BID Insulin Aspart [NovoLOG] See Protocol SUBCUT QIDACANDBED 04/06/18 21:50 Urinary Catheter Assessment [RC] Q12H 04/06/18 22:00 Sidhu Catheter Insertion [Insert Urinary Catheter] [OM.PC] Q24H 04/06/18 Dinner Heart Healthy Diet [DIET] 04/07/18 07:30 Levothyroxine 150 mcg PO ACBREAKFAST 04/07/18 09:00 Liothyronine [Cytomel] 37.5 mcg PO DAILY Potassium Chloride [Klor-Con M20] 40 meq PO DAILY Sennosides [Senna] 8.6 mg PO DAILY 04/07/18 10:10 EKG 12 Lead [EKG Documentation Completion] [RC] ROUTINE OT Evaluation and Treatment [CONS] Routine PT Evaluation and Treatment [CONS] Routine 04/07/18 13:50 Spotter Driver Discontinue [Cardiac Monitoring Discontinue] [RC] Click to Edit 04/07/18 21:00 Furosemide [Lasix] 40 mg IVPUSH BID cefTRIAXone [Rocephin] 1 gm Sodium Chloride 0.9% [Normal Saline] 50 ml IV Q24H 04/07/18 Lunch Fluid Restriction [DIET] 04/08/18 05:11 BASIC METABOLIC PANEL,BMP [CHEM] AM MAGNESIUM [CHEM] AM PHOSPHORUS [CHEM] AM 04/09/18 05:11 BASIC METABOLIC PANEL,BMP [CHEM] AM MAGNESIUM [CHEM] AM PHOSPHORUS [CHEM] AM 04/10/18 05:11 BASIC METABOLIC PANEL,BMP [CHEM] AM MAGNESIUM [CHEM] AM PHOSPHORUS [CHEM] AM - Plan Plan:: decrease Lasix 60 mg IV every 12 hours, we put Sidhu catheter and give patient potassium 40 mEq by mouth or daily, we'll order cardiac echo and patient may need cardiology consult on Monday. We'll also need to monitor magnesium A flutter with RVR- cardiazem 20 mg iv push one dose , metoprolol 50 mg po one time , f/up HR A. fib paroxysmal patient will need anticoagulation with eliquis 5 mg by mouth twice a BID For hypothyroidism patient will be restarted on her home dose of thyroid medication seen. 150 mg by mouth daily, cytomel For diabetes mellitus patient will be started on insulin on sliding scale before meals and at bedtime, f/up HB A1c Deconditioning patient will need physical therapy in a patient on therapy when medically stable
[2018-04-07] MEDS ORDERED: Metoprolol Tartrate 25 MG Tab PO SCH ×2 (14:15→17:31)
[2018-04-07] MEDS: Lisinopril 5 MG Tab PO SCH (15:23)
[2018-04-07] MEDS ORDERED: Metoprolol Tartrate 25 MG Tab PO ONE (16:07)
[2018-04-07] MEDS ORDERED: Potassium Chloride 20 MEQ Tab.ER PO ONE (16:20)
[2018-04-07] MEDS ORDERED: Cyanocobalamin (Vitamin B12) 1,000 MCG/ML SDV IM ONE (16:21)
[2018-04-07] MEDS: cefTRIAXone 1 GM in Sodium Chloride 0.9% 50 ML IV SCH (20:56)
[2018-04-07] MEDS: Metoprolol Tartrate 25 MG Tab PO SCH (21:16)
[2018-04-07] MEDS: Famotidine 20 MG Tab PO SCH (21:23)
[2018-04-08] MEDS: Levothyroxine 75 MCG Tab PO SCH (06:44)
[2018-04-08] MEDS: Insulin Aspart 100 Units/ML 3 ML Pen SUBCUT SCH ×5 (06:45→20:40)
[2018-04-08] MEDS: Furosemide 40 MG/4 ML VIAL IVPUSH SCH ×2 (09:56→20:22)
[2018-04-08] MEDS: Metoprolol Tartrate 25 MG Tab PO SCH ×3 (09:57→23:53)
[2018-04-08] MEDS: Lisinopril 5 MG Tab PO SCH (09:57)
[2018-04-08] MEDS: Apixaban 5 MG Tab PO SCH ×2 (09:59→20:23)
[2018-04-08] MEDS: Famotidine 20 MG Tab PO SCH (09:59)
[2018-04-08] MEDS: Potassium Chloride 20 MEQ Tab.ER PO SCH (09:59)
[2018-04-08] MEDS: Sennosides 8.6 MG Tab PO SCH (10:00)
[2018-04-08] MEDS ORDERED: Furosemide 40 MG/4 ML VIAL IVPUSH ONE (12:36)
[2018-04-08] MEDS ORDERED: Metoprolol Tartrate 25 MG Tab PO ONE ×2 (12:36→17:37)
[2018-04-08] MEDS ORDERED: Magnesium Sulfate/Water 2 GM in Premix Bag 1 BAG IV ONE (12:56)
[2018-04-08] MEDS ORDERED: Diltiazem 120 MG Cap.CD PO ONE (15:35)
--- NOTE | 2018-04-08 15:37 | PCM.PN ---
- General Info Date of Service: 04/08/18 Subjective Update: feeling better , diuresed 1700 cc negative I and O over the past 24 h . metoprolol was increased at 75 mg po BID , but heart rate still uncontrolled . Will give patient one more dose of Metoprolol 25 mg po - Review of Systems General: Reports: No Symptoms HEENT: Reports: No Symptoms Pulmonary: Reports: Shortness of Breath Cardiovascular: Reports: Dyspnea on Exertion, Edema (3plus) Genitourinary: Reports: No Symptoms Musculoskeletal: Reports: No Symptoms Skin: Reports: No Symptoms Neurological: Reports: No Symptoms Psychiatric: Reports: No Symptoms - Patient Data Vitals - Most Recent: Last Vital Signs Temp 96.8 F 04/08/18 12:00 Pulse 108 H 04/08/18 13:40 Resp 18 04/08/18 12:00 BP 103/58 L 04/08/18 13:40 Pulse Ox 97 04/08/18 12:00 Weight - Most Recent: 193 lb 14.4 oz I&O - Last 24 Hours: Intake & Output 04/08/18 04/08/18 04/08/18 06:59 14:59 22:59 Intake Total 770 Output Total 1430 Balance -660 Lab Results Last 24 Hours: Laboratory Results - last 24 hr 04/07/18 04/07/18 04/07/18 Range/Units 05:40 16:08 19:56 Sodium (136-145) mmol/L Potassium (3.5-5.1) mmol/L Chloride (98-107) mmol/L Carbon Dioxide (21.0-32.0) mmol/L BUN (7.0-18.0) mg/dL Creatinine (0.6-1.0) mg/dL Est Cr Clr Drug Dosing mL/min Estimated GFR (MDRD) ml/min Glucose (74-106) mg/dL POC Glucose 172 H 279 H (60-110) mg/dL Hemoglobin A1c 8.1 H (4.5-6.2) % Calcium (8.5-10.1) mg/dL Phosphorus (2.6-4.7) mg/dL Magnesium (1.8-2.4) mg/dL 04/08/18 04/08/18 04/08/18 Range/Units 06:01 06:18 11:22 Sodium 141 (136-145) mmol/L Potassium 3.8 (3.5-5.1) mmol/L Chloride 103 (98-107) mmol/L Carbon Dioxide 31.3 (21.0-32.0) mmol/L BUN 28 H (7.0-18.0) mg/dL Creatinine 1.3 H (0.6-1.0) mg/dL Est Cr Clr Drug Dosing 32.36 mL/min Estimated GFR (MDRD) 40.3 ml/min Glucose 168 H (74-106) mg/dL POC Glucose 151 H 175 H (60-110) mg/dL Hemoglobin A1c (4.5-6.2) % Calcium 8.2 L (8.5-10.1) mg/dL Phosphorus 3.7 (2.6-4.7) mg/dL Magnesium 1.7 L (1.8-2.4) mg/dL Med Orders - Current: Current Medications Acetaminophen (Tylenol) 650 mg PO Q4H PRN PRN Reason: Pain (Mild 1-3)/fever Apixaban (Eliquis) 5 mg PO BID [facility] Last Admin: 04/08/18 09:59 Dose: 5 mg Diltiazem HCl (Cardizem Cd) 120 mg PO ONETIME ONE Stop: 04/08/18 15:36 Docusate Sodium (Colace) 100 mg PO BID PRN PRN Reason: Constipation Famotidine (Pepcid) 20 mg PO DAILY [facility] Last Admin: 04/08/18 09:59 Dose: 20 mg Furosemide (Lasix) 40 mg IVPUSH BID [facility] Last Admin: 04/08/18 09:56 Dose: 40 mg Ceftriaxone Sodium 1 gm/ (Sodium Chloride) 50 mls @ 100 mls/hr IV Q24H [facility] Last Admin: 04/07/18 20:56 Dose: 100 mls/hr Insulin Aspart (Novolog) 0 unit SUBCUT ACBED [facility]; Protocol Last Admin: 04/08/18 13:38 Dose: 2 units Insulin Glargine (Lantus Solostar) 7 units SUBCUT BEDTIME [facility] Levothyroxine Sodium (Levothyroxine) 150 mcg PO ACBREAKFAST [facility] Last Admin: 04/08/18 06:44 Dose: 150 mcg Liothyronine Sodium (Cytomel) 37.5 mcg PO DAILY [facility] Last Admin: 04/08/18 09:39 Dose: Not Given Lisinopril (Prinivil) 5 mg PO DAILY [facility] Last Admin: 04/08/18 09:57 Dose: 5 mg Lorazepam (Ativan) 0.5 mg PO Q2HR PRN PRN Reason: Anxiety Metoprolol Tartrate (Lopressor) 75 mg PO Q12H [facility] Last Admin: 04/08/18 13:30 Dose: 75 mg Ondansetron HCl (Zofran) 4 mg IVPUSH Q4H PRN PRN Reason: Nausea Potassium Chloride (Klor-Con M20) 40 meq PO DAILY [facility] Last Admin: 04/08/18 09:59 Dose: 40 meq Senna (Senna) 8.6 mg PO DAILY [facility] Last Admin: 04/08/18 10:00 Dose: 8.6 mg Sertraline HCl (Zoloft) 25 mg PO BEDTIME [facility] Sodium Chloride (Saline Flush) 10 ml FLUSH ASDIRECTED PRN PRN Reason: Keep Vein Open Last Admin: 04/06/18 10:52 Dose: 10 ml Sodium Chloride (Saline Flush) 2.5 ml FLUSH ASDIRECTED PRN PRN Reason: Keep Vein Open Last Admin: 04/06/18 10:52 Dose: 2.5 ml Sodium Chloride (Saline Flush) 10 ml FLUSH ASDIRECTED PRN PRN Reason: Keep Vein Open Sodium Chloride (Saline Flush) 2.5 ml FLUSH ASDIRECTED PRN PRN Reason: Keep Vein Open Discontinued Medications Cyanocobalamin (Vitamin B12) 1,000 mcg IM ONETIME ONE Stop: 04/07/18 16:22 Last Admin: 04/07/18 16:55 Dose: Not Given Diltiazem HCl (Diltiazem) 20 mg IVPUSH ONETIME ONE Stop: 04/07/18 11:37 Last Admin: 04/07/18 12:18 Dose: 20 mg Diltiazem HCl (Diltiazem) 20 mg IVPUSH ONETIME ONE Stop: 04/07/18 21:14 Last Admin: 04/07/18 21:26 Dose: 20 mg Enoxaparin Sodium (Lovenox) 40 mg SUBCUT Q24H [facility] Last Admin: 04/06/18 15:30 Dose: 40 mg Furosemide (Lasix) 60 mg IVPUSH NOW ONE Stop: 04/06/18 12:18 Last Admin: 04/06/18 12:24 Dose: 60 mg Furosemide (Lasix) 80 mg IVPUSH BID [facility] Last Admin: 04/07/18 10:39 Dose: 80 mg Furosemide (Lasix) 40 mg IVPUSH NOW ONE Stop: 04/08/18 12:37 Last Admin: 04/08/18 13:40 Dose: 40 mg Lidocaine HCl (Xylocaine-Mpf 1%) Confirm Administered Dose 5 mls @ as directed .ROUTE .STK-MED ONE Stop: 04/06/18 11:05 Last Admin: 04/06/18 12:32 Dose: Not Given Ceftriaxone Sodium/Dextrose 1 (gm/ Premix) 50 mls @ 100 mls/hr IV Q24H [facility] Last Infusion: 04/06/18 22:10 Dose: Infused Lidocaine HCl (Xylocaine-Mpf 1%) Confirm Administered Dose 5 mls @ as directed .ROUTE .STK-MED ONE Stop: 04/07/18 09:12 Magnesium Sulfate 2 gm/ Premix 50 mls @ 50 mls/hr IV ONETIME ONE Stop: 04/08/18 13:55 Last Admin: 04/08/18 13:41 Dose: 50 mls/hr Insulin Aspart (Novolog) 0 unit SUBCUT ACBREAKFASTANDBED [facility]; Protocol Insulin Aspart (Novolog) 0 unit SUBCUT QIDACANDBED [facility]; Protocol Last Admin: 04/08/18 13:24 Dose: Not Given Levothyroxine Sodium (Levothyroxine) 150 mcg PO ACBREAKFAST [facility] Levothyroxine Sodium (Levothyroxine) 75 mcg PO ACBREAKFAST [facility] Levothyroxine Sodium (Synthroid) 100 mcg PO ACBREAKFAST [facility] Lidocaine HCl (Xylocaine-Mpf 1%) 5 ml INJECT ONETIME ONE Stop: 04/06/18 11:06 Last Admin: 04/06/18 11:06 Dose: 5 ml Metoprolol Tartrate (Lopressor) 25 mg PO Q12H [facility] Last Admin: 04/07/18 15:20 Dose: 25 mg Metoprolol Tartrate (Lopressor) 25 mg PO ONETIME ONE Stop: 04/07/18 16:08 Last Admin: 04/07/18 16:50 Dose: 25 mg Metoprolol Tartrate (Lopressor) 50 mg PO Q12H [facility] Last Admin: 04/07/18 18:44 Dose: Not Given Metoprolol Tartrate (Lopressor) 50 mg PO Q12H [facility] Last Admin: 04/08/18 09:57 Dose: 50 mg Metoprolol Tartrate (Lopressor) 25 mg PO ONETIME ONE Stop: 04/08/18 12:37 Last Admin: 04/08/18 13:40 Dose: 25 mg Morphine Sulfate (Morphine) 2 mg IVPUSH Q2H PRN PRN Reason: Pain (severe 7-10) Stop: 04/07/18 14:19 Nitroglycerin (Nitro-Bid 2%) 1 gm TOP ONETIME ONE Stop: 04/06/18 10:39 Last Admin: 04/06/18 10:49 Dose: 1 gm Potassium Chloride (Klor-Con M20) 40 meq PO ONETIME ONE Stop: 04/07/18 16:21 Last Admin: 04/07/18 16:50 Dose: 40 meq - Exam Quality Assessment: No: Supplemental Oxygen General: Alert, Oriented HEENT: Pupils Equal, Pupils Reactive, EOMI Neck: Supple, Trachea Midline, No JVD, No Thyromegaly Lungs: Clear to Auscultation, Normal Respiratory Effort Cardiovascular: Regular Rate, Regular Rhythm Back Exam: Normal Inspection Extremities: Normal Inspection - Problem List & Annotations (1) Systolic CHF, acute on chronic SNOMED Code(s): 845073041, 748167719 Code(s): I50.23 - ACUTE ON CHRONIC SYSTOLIC (CONGESTIVE) HEART FAILURE Status: Acute Current Visit: Yes (2) CAD (coronary artery disease) of artery bypass graft SNOMED Code(s): 300352246, 86627042, 919258920, 001450059, 315635192 Code(s): I25.810 - ATHEROSCLEROSIS OF CABG W/O ANGINA PECTORIS Status: Acute Current Visit: Yes (3) Paroxysmal A-fib SNOMED Code(s): 798172561 Code(s): I48.0 - PAROXYSMAL ATRIAL FIBRILLATION Status: Acute Current Visit: Yes (4) Diabetes mellitus SNOMED Code(s): 11850811 Code(s): E11.9 - TYPE 2 DIABETES MELLITUS WITHOUT COMPLICATIONS Status: Acute Current Visit: Yes (5) Hypothyroidism SNOMED Code(s): 18323448 Code(s): E03.9 - HYPOTHYROIDISM, UNSPECIFIED Status: Acute Current Visit : Yes - Problem List Review Problem List Initiated/Reviewed/Updated: Yes - My Orders Last 24 Hours: My Active Orders 04/07/18 14:45 Lisinopril [Prinivil] 5 mg PO DAILY 04/07/18 21:00 Furosemide [Lasix] 40 mg IVPUSH BID cefTRIAXone [Rocephin] 1 gm Sodium Chloride 0.9% [Normal Saline] 50 ml IV Q24H 04/07/18 21:15 Famotidine [Pepcid] 20 mg PO DAILY 04/07/18 Dinner 2 Gram Sodium Diet [DIET] 04/08/18 10:48 Remove Sidhu Catheter [Urinary Catheter Removal] [RC] Per Unit Routine 04/08/18 11:30 Insulin Aspart [NovoLOG] See Protocol SUBCUT ACBED 04/08/18 12:35 Metoprolol Tartrate [Lopressor] 75 mg PO Q12H 04/08/18 15:35 Diltiazem [Cardizem CD] 120 mg PO ONETIME ONE 04/08/18 21:00 Insulin Glarg,Human.Rec.Analog [LantUS Solostar] 7 units SUBCUT BEDTIME Sertraline [Zoloft] 25 mg PO BEDTIME 04/09/18 05:11 BASIC METABOLIC PANEL,BMP [CHEM] AM MAGNESIUM [CHEM] AM PHOSPHORUS [CHEM] AM 04/10/18 05:11 BASIC METABOLIC PANEL,BMP [CHEM] AM MAGNESIUM [CHEM] AM PHOSPHORUS [CHEM] AM - Plan Plan:: Lasix 40 mg IV every TID given today , we'll order cardiac echo and patient may need cardiology consult on Monday. We'll also need to monitor magnesium A flutter with RVR- metoprolol 75 mg po q 12 h , f/up HR eliquis 5 mg by mouth twice a BID For hypothyroidism patient will be restarted on her home dose of thyroid medication seen. 150 mg by mouth daily, cytomel For diabetes mellitus patient will be started on insulin on sliding scale before meals and at bedtime, f/up HB A1c Deconditioning patient will need physical therapy in a patient on therapy when medically stable
[2018-04-08] MEDS: Sertraline 25 MG Tab PO SCH (20:22)
[2018-04-08] MEDS: cefTRIAXone 1 GM in Sodium Chloride 0.9% 50 ML IV SCH (20:23)
[2018-04-08] MEDS ORDERED: Carboxymethylcellulose Sodium 0.5% Ophth Soln 0.4 ML UD Box of 30 EYEBOTH PRN ×2 (20:52→22:50)
[2018-04-08] MEDS ORDERED: Insulin Glargine,Human Rec. Analog 100 Units/ML 3 ML Pen SUBCUT SCH (21:00)
[2018-04-09] MEDS: Levothyroxine 75 MCG Tab PO SCH (06:48)
[2018-04-09] MEDS: Insulin Aspart 100 Units/ML 3 ML Pen SUBCUT SCH ×4 (07:30→21:09)
[2018-04-09] MEDS: Metoprolol Tartrate 50 MG Tab PO SCH ×2 (08:54→21:06)
[2018-04-09] MEDS: Apixaban 5 MG Tab PO SCH ×2 (08:54→21:06)
[2018-04-09] MEDS: Lisinopril 5 MG Tab PO SCH (08:54)
[2018-04-09] MEDS: Famotidine 20 MG Tab PO SCH (08:54)
[2018-04-09] MEDS: Potassium Chloride 20 MEQ Tab.ER PO SCH (08:55)
[2018-04-09] MEDS ORDERED: Furosemide 40 MG/4 ML VIAL IVPUSH SCH (09:00)
[2018-04-09] MEDS: Furosemide 40 MG/4 ML VIAL IVPUSH SCH ×2 (09:05→21:12)
[2018-04-09] MEDS: Sennosides 8.6 MG Tab PO SCH (09:09)
[2018-04-09] MEDS ORDERED: Insulin Glargine,Human Rec. Analog 100 Units/ML 3 ML Pen SUBCUT ONE (09:30)
[2018-04-09] MEDS ORDERED: Diltiazem 120 MG Cap.CD PO SCH (15:45)
[2018-04-09] MEDS ORDERED: Lisinopril 5 MG Tab PO ONE (18:35)
--- NOTE | 2018-04-09 19:52 | CONS ---
DATE OF CONSULTATION: DATE OF : 1945 PRIMARY CARE PHYSICIAN: None PCP REASON FOR CONSULTATION: Decompensated heart failure. HISTORY OF PRESENT ILLNESS: This is a 72-year-old female with history of paroxysmal atrial fibrillation, persistent atrial flutter, history of hypertension, diabetes, hyperlipidemia, cardiomyopathy, ejection fraction 15% to 20%, history of CABG in 2000. History of TIA, former smoker, presented to the hospital at this time due to increasing leg swelling, increasing shortness of breath. Her baseline weight is July 2017. However, over the past 2 weeks she has gained weight and currently is up to 200 pounds. She was admitted in [place], [place], due to decompensated heart failure. At that time, they diuresed her and she was discharged with Coreg 3.125, Lipitor 20, Eliquis 5 mg twice a day, Lasix 20 mg once a day, Imdur 60 mg once a day as well as lisinopril 20 mg once a day, however, she moved up from [place] to [place] to live close to her son, and she also saw the new primary care doctor for the first time. She decided to quit all cardiac care and decided to go to the hospice, and she quitted taking medication 2 months ago, and she was anticipated to be in the hospital, however, the process for hospital admission has not been proceeded yet, and she started being more short of breath, and at this time when she came to the hospital, she changed her mind, she does not want to be in the hospital anymore. She wanted everything done aggressively. When she presented to the hospital, she was found to have atrial flutter, possibly atrial flutter with a heart rate of one teens to 120 and metoprolol was started. Currently, she is on metoprolol 100 mg twice a day, lisinopril 5 mg was started as well. She was given Lasix 40 mg IV twice a day and today due to atrial flutter, RVR, she was given with Cardizem 120 long- acting. Over the past weekend, she has been diuresed, very good urine output, and she was negative at least 1 to 1.5 L, and her weight is coming down from 200 to 194 pounds. PAST MEDICAL HISTORY: Including CAD, status post CABG x5 in 2000 in [place]; history hypertension; diabetes; hyperlipidemia; paroxysmal atrial fibrillation and persistent atrial flutter; history of TIA; stroke; cardiomyopathy, ejection fraction 15% to 20% from [place], [place], January 2018. ALLERGIES: She is allergic to morphine and sulfa. SOCIAL HISTORY: Former smoker. No drug use. No alcohol use. FAMILY HISTORY: Father and grandfather had a history of heart attack. Mother has a heart problem. HOSPITAL MEDICATIONS: Include, 1. Metoprolol 100 mg twice a day. 2. Lisinopril 5 mg once a day. 3. Lasix 40 mg IV twice a day. PHYSICAL EXAMINATION: VITAL SIGNS: The initial blood pressure is 112/66. The current blood pressure is around 90 to 100. Heart rate is around 100 to 110, O2 saturation is 98 on 1 L. HEENT: Mild dry eye. Mildly pale. JVD positive. HEART: Normal S1, S2. Tachycardia. Totally irregular. LUNGS: Decreased breath sounds. Crackles bilaterally. ABDOMEN: Soft, nontender. No hepatosplenomegaly. No rebound tenderness. No guarding. Bowel sounds present. EXTREMITIES: Legs, edema, 2+ pitting edema. INVESTIGATION: Echocardiogram prelim showed ejection fraction possibly 10% with mild MR and biatrial enlargement. EKG showed possibly atypical atrial flutter with a heart rate of 117, QRS duration 108. Chest x-ray show bilateral pleural effusion and pulmonary cephalization. Additional information, she stated that she also was admitted in July last year in [facility] in [place], [place]. At that time, they did a CHAPO and she was told she has a blood clot and they cannot do cardioversion and the blood thinner was started. She has worn a LifeVest for -08/15 , and however, she took it off because she feels so uncomfortable. There is no shock treatment or therapy from LifeVest itself. ASSESSMENT AND PLAN: This is a 72-year-old female, history of CABG x5, coronary artery disease, ischemic cardiomyopathy, ejection fraction 15% to 20%, paroxysmal atrial fibrillation and persistent atrial flutter, rapid ventricular response, diabetes, hypertension, former smoker, decompensated heart failure. She want everything done aggressively for her heart, so she would need ischemic workup. I would definitely do arrange for the heart catheterization as an outpatient. I will also obtain the record from [place], [place] to see what investigation was done there before and definitely her heart rate needs to be well controlled. I will discontinue the diltiazem for now and continue using the metoprolol, and we can add digoxin for heart rate control and continue diuresing with Lasix 40 mg IV twice a day. Continue lisinopril. We had a long and lengthy discussion about the medical therapy as well as being qualified for ICD. She need to be on the medical therapy at least for three months and echocardiogram need to be repeated, if her ejection fraction less than 35%, she will be qualified for defibrillator implantation for sudden cardiac arrest protection, and she also needs ischemic workup which is a cardiac catheterization. We may consider rhythm control, but she may not be maintaining sinus rhythm very long because of a history of diabetes, hypertension, and also heart failure. We do just rate control for now and I recommended to have the LifeVest to be put on, however, she refused, and she verbalized understanding about the risks of a sudden cardiac can be any time and can be prevented by wearing the LifeVest, but she still refused that. ADELE / MAU /[id number]
[2018-04-09] MEDS: cefTRIAXone 1 GM in Sodium Chloride 0.9% 50 ML IV SCH (21:05)
[2018-04-09] MEDS: Sertraline 25 MG Tab PO SCH (21:06)
[2018-04-09] MEDS: Insulin Glargine,Human Rec. Analog 100 Units/ML 3 ML Pen SUBCUT SCH (21:08)
--- NOTE | 2018-04-09 21:12 | PCM.PN ---
- General Info Date of Service: 04/09/18 Admission Dx/Problem (Free Text): Patient very tired in am . She did not slept well last night . She was seen by alignment specialist today. Her EF is 5-10 %on Echo done Monday , 3 days ago Functional Status: Reports: Pain Controlled - Review of Systems General: Reports: No Symptoms HEENT: Reports: No Symptoms Pulmonary: Reports: Shortness of Breath Cardiovascular: Reports: Dyspnea on Exertion, Orthopnea, Edema. Denies: Chest Pain Gastrointestinal: Reports: No Symptoms Genitourinary: Reports: No Symptoms Musculoskeletal: Reports: No Symptoms Skin: Reports: No Symptoms Neurological: Reports: No Symptoms Psychiatric: Reports: No Symptoms - Patient Data Vitals - Most Recent: Last Vital Signs Temp 98.2 F 04/09/18 20:00 Pulse 108 H 04/09/18 20:00 Resp 20 04/09/18 20:00 BP 110/68 04/09/18 20:00 Pulse Ox 90 L 04/09/18 20:00 Weight - Most Recent: 194 lb 1.6 oz I&O - Last 24 Hours: Intake & Output 04/09/18 04/09/18 04/09/18 06:59 14:59 22:59 Intake Total 700 560 Output Total 630 500 Balance 70 60 Lab Results Last 24 Hours: Laboratory Results - last 24 hr 04/09/18 04/09/18 04/09/18 Range/Units 06:00 06:00 06:00 WBC 12.76 H (4.0-11.0) K/uL RBC 4.53 (4.30-5.90) M/uL Hgb 12.7 (12.0-16.0) g/dL Hct 39.7 (36.0-46.0) % MCV 87.6 (80.0-98.0) fL MCH 28.0 (27.0-32.0) pg MCHC 32.0 (31.0-37.0) g/dL RDW Std Deviation 56.4 (28.0-62.0) fl RDW Coeff of Jalen 17 H (11.0-15.0) % Plt Count 265 (150-400) K/uL MPV 10.70 (7.40-12.00) fL Nucleated RBC % 0.0 /100WBC Nucleated RBCs # 0 K/uL Sodium 136 (136-145) mmol/L Potassium 4.1 (3.5-5.1) mmol/L Chloride 100 (98-107) mmol/L Carbon Dioxide 33.0 H (21.0-32.0) mmol/L BUN 31 H (7.0-18.0) mg/dL Creatinine 1.4 H (0.6-1.0) mg/dL Est Cr Clr Drug Dosing 30.05 mL/min Estimated GFR (MDRD) 37.0 ml/min Glucose 225 H (74-106) mg/dL POC Glucose (60-110) mg/dL Calcium 8.5 (8.5-10.1) mg/dL Phosphorus 4.0 (2.6-4.7) mg/dL Magnesium 2.1 (1.8-2.4) mg/dL Triglycerides 74 (0-200) mg/dL Cholesterol 97 (50-200) mg/dL LDL Cholesterol, Calc 50 L (60-180) mg/dL VLDL Cholesterol 14 (5-55) mg/dL HDL Cholesterol 32 L (40-60) mg/dL Cholesterol/HDL Ratio 3.0 L (3.3-6.0) 04/09/18 04/09/18 04/09/18 Range/Units 06:06 16:18 20:48 WBC (4.0-11.0) K/uL RBC (4.30-5.90) M/uL Hgb (12.0-16.0) g/dL Hct (36.0-46.0) % MCV (80.0-98.0) fL MCH (27.0-32.0) pg MCHC (31.0-37.0) g/dL RDW Std Deviation (28.0-62.0) fl RDW Coeff of Jalen (11.0-15.0) % Plt Count (150-400) K/uL MPV (7.40-12.00) fL Nucleated RBC % /100WBC Nucleated RBCs # K/uL Sodium (136-145) mmol/L Potassium (3.5-5.1) mmol/L Chloride (98-107) mmol/L Carbon Dioxide (21.0-32.0) mmol/L BUN (7.0-18.0) mg/dL Creatinine (0.6-1.0) mg/dL Est Cr Clr Drug Dosing mL/min Estimated GFR (MDRD) ml/min Glucose (74-106) mg/dL POC Glucose 211 H 201 H 179 H (60-110) mg/dL Calcium (8.5-10.1) mg/dL Phosphorus (2.6-4.7) mg/dL Magnesium (1.8-2.4) mg/dL Triglycerides (0-200) mg/dL Cholesterol (50-200) mg/dL LDL Cholesterol, Calc (60-180) mg/dL VLDL Cholesterol (5-55) mg/dL HDL Cholesterol (40-60) mg/dL Cholesterol/HDL Ratio (3.3-6.0) Med Orders - Current: Current Medications Acetaminophen (Tylenol) 650 mg PO Q4H PRN PRN Reason: Pain (Mild 1-3)/fever Apixaban (Eliquis) 5 mg PO BID [facility] Last Admin: 04/09/18 08:54 Dose: 5 mg Artificial Tears (Refresh Plus 0.5%) 1 each EYEBOTH ASDIRECTED PRN PRN Reason: Dry Eyes Digoxin (Lanoxin) 250 mcg PO DAILY [facility] Docusate Sodium (Colace) 100 mg PO BID PRN PRN Reason: Constipation Famotidine (Pepcid) 20 mg PO DAILY [facility] Last Admin: 04/09/18 08:54 Dose: 20 mg Furosemide (Lasix) 40 mg IVPUSH BID [facility] Last Admin: 04/09/18 09:05 Dose: 40 mg Ceftriaxone Sodium 1 gm/ (Sodium Chloride) 50 mls @ 100 mls/hr IV Q24H [facility] Last Admin: 04/08/18 20:23 Dose: 100 mls/hr Insulin Aspart (Novolog) 0 unit SUBCUT ACBED [facility]; Protocol Last Admin: 04/09/18 17:39 Dose: 4 units Insulin Glargine (Lantus Solostar) 12 units SUBCUT BEDTIME [facility] Levothyroxine Sodium (Levothyroxine) 150 mcg PO ACBREAKFAST [facility] Last Admin: 04/09/18 06:48 Dose: 150 mcg Lisinopril (Prinivil) 10 mg PO DAILY [facility] Lorazepam (Ativan) 0.5 mg PO Q2HR PRN PRN Reason: Anxiety Metoprolol Tartrate (Lopressor) 100 mg PO Q12H [facility] Last Admin: 04/09/18 08:54 Dose: 100 mg Ondansetron HCl (Zofran) 4 mg IVPUSH Q4H PRN PRN Reason: Nausea Potassium Chloride (Klor-Con M20) 40 meq PO DAILY [facility] Last Admin: 04/09/18 08:55 Dose: 40 meq Senna (Senna) 8.6 mg PO DAILY [facility] Last Admin: 04/09/18 09:09 Dose: Not Given Sertraline HCl (Zoloft) 25 mg PO BEDTIME [facility] Last Admin: 04/08/18 20:22 Dose: 25 mg Sodium Chloride (Saline Flush) 10 ml FLUSH ASDIRECTED PRN PRN Reason: Keep Vein Open Last Admin: 04/06/18 10:52 Dose: 10 ml Sodium Chloride (Saline Flush) 2.5 ml FLUSH ASDIRECTED PRN PRN Reason: Keep Vein Open Last Admin: 04/06/18 10:52 Dose: 2.5 ml Sodium Chloride (Saline Flush) 10 ml FLUSH ASDIRECTED PRN PRN Reason: Keep Vein Open Sodium Chloride (Saline Flush) 2.5 ml FLUSH ASDIRECTED PRN PRN Reason: Keep Vein Open Discontinued Medications Artificial Tears (Refresh Plus 0.5%) 0 each EYEBOTH ASDIRECTED PRN PRN Reason: Dry Eyes Last Admin: 04/08/18 21:15 Dose: 1 drop Cyanocobalamin (Vitamin B12) 1,000 mcg IM ONETIME ONE Stop: 04/07/18 16:22 Last Admin: 04/07/18 16:55 Dose: Not Given Diltiazem HCl (Diltiazem) 20 mg IVPUSH ONETIME ONE Stop: 04/07/18 11:37 Last Admin: 04/07/18 12:18 Dose: 20 mg Diltiazem HCl (Diltiazem) 20 mg IVPUSH ONETIME ONE Stop: 04/07/18 21:14 Last Admin: 04/07/18 21:26 Dose: 20 mg Diltiazem HCl (Cardizem Cd) 120 mg PO ONETIME ONE Stop: 04/08/18 15:36 Last Admin: 04/08/18 16:00 Dose: Not Given Diltiazem HCl (Cardizem Cd) 120 mg PO DAILY [facility] Last Admin: 04/09/18 17:43 Dose: 120 mg Enoxaparin Sodium (Lovenox) 40 mg SUBCUT Q24H [facility] Last Admin: 04/06/18 15:30 Dose: 40 mg Furosemide (Lasix) 60 mg IVPUSH NOW ONE Stop: 04/06/18 12:18 Last Admin: 04/06/18 12:24 Dose: 60 mg Furosemide (Lasix) 80 mg IVPUSH BID [facility] Last Admin: 04/07/18 10:39 Dose: 80 mg Furosemide (Lasix) 40 mg IVPUSH BID [facility] Last Admin: 04/08/18 20:22 Dose: 40 mg Furosemide (Lasix) 40 mg IVPUSH NOW ONE Stop: 04/08/18 12:37 Last Admin: 04/08/18 13:40 Dose: 40 mg Furosemide (Lasix) 60 mg IVPUSH BID [facility] Lidocaine HCl (Xylocaine-Mpf 1%) Confirm Administered Dose 5 mls @ as directed .ROUTE .STK-MED ONE Stop: 04/06/18 11:05 Last Admin: 04/06/18 12:32 Dose: Not Given Ceftriaxone Sodium/Dextrose 1 (gm/ Premix) 50 mls @ 100 mls/hr IV Q24H [facility] Last Infusion: 04/06/18 22:10 Dose: Infused Lidocaine HCl (Xylocaine-Mpf 1%) Confirm Administered Dose 5 mls @ as directed .ROUTE .STK-MED ONE Stop: 04/07/18 09:12 Magnesium Sulfate 2 gm/ Premix 50 mls @ 50 mls/hr IV ONETIME ONE Stop: 04/08/18 13:55 Last Admin: 04/08/18 13:41 Dose: 50 mls/hr Insulin Aspart (Novolog) 0 unit SUBCUT ACBREAKFASTANDBED [facility]; Protocol Insulin Aspart (Novolog) 0 unit SUBCUT QIDACANDBED [facility]; Protocol Last Admin: 04/08/18 13:24 Dose: Not Given Insulin Glargine (Lantus Solostar) 7 units SUBCUT BEDTIME [facility] Last Admin: 04/08/18 20:39 Dose: 7 units Insulin Glargine (Lantus Solostar) 7 units SUBCUT ONETIME ONE Stop: 04/09/18 09:31 Last Admin: 04/09/18 09:51 Dose: 7 unit Levothyroxine Sodium (Levothyroxine) 150 mcg PO ACBREAKFAST [facility] Levothyroxine Sodium (Levothyroxine) 75 mcg PO ACBREAKFAST [facility] Levothyroxine Sodium (Synthroid) 100 mcg PO ACBREAKFAST [facility] Lidocaine HCl (Xylocaine-Mpf 1%) 5 ml INJECT ONETIME ONE Stop: 04/06/18 11:06 Last Admin: 04/06/18 11:06 Dose: 5 ml Liothyronine Sodium (Cytomel) 37.5 mcg PO DAILY [facility] Last Admin: 04/08/18 09:39 Dose: Not Given Lisinopril (Prinivil) 5 mg PO DAILY [facility] Last Admin: 04/09/18 08:54 Dose: 5 mg Lisinopril (Prinivil) 5 mg PO ONETIME ONE Stop: 04/09/18 18:36 Last Admin: 04/09/18 18:46 Dose: Not Given Metoprolol Tartrate (Lopressor) 25 mg PO Q12H [facility] Last Admin: 04/07/18 15:20 Dose: 25 mg Metoprolol Tartrate (Lopressor) 25 mg PO ONETIME ONE Stop: 04/07/18 16:08 Last Admin: 04/07/18 16:50 Dose: 25 mg Metoprolol Tartrate (Lopressor) 50 mg PO Q12H [facility] Last Admin: 04/07/18 18:44 Dose: Not Given Metoprolol Tartrate (Lopressor) 50 mg PO Q12H [facility] Last Admin: 04/08/18 09:57 Dose: 50 mg Metoprolol Tartrate (Lopressor) 75 mg PO Q12H [facility] Last Admin: 04/08/18 23:53 Dose: 75 mg Metoprolol Tartrate (Lopressor) 25 mg PO ONETIME ONE Stop: 04/08/18 12:37 Last Admin: 04/08/18 13:40 Dose: 25 mg Metoprolol Tartrate (Lopressor) 25 mg PO ONETIME ONE Stop: 04/08/18 17:38 Last Admin: 04/08/18 18:16 Dose: 25 mg Morphine Sulfate (Morphine) 2 mg IVPUSH Q2H PRN PRN Reason: Pain (severe 7-10) Stop: 04/07/18 14:19 Nitroglycerin (Nitro-Bid 2%) 1 gm TOP ONETIME ONE Stop: 04/06/18 10:39 Last Admin: 04/06/18 10:49 Dose: 1 gm Potassium Chloride (Klor-Con M20) 40 meq PO ONETIME ONE Stop: 04/07/18 16:21 Last Admin: 04/07/18 16:50 Dose: 40 meq - Exam General: Alert, Oriented HEENT: Pupils Equal, Pupils Reactive Neck: Supple, Trachea Midline, No JVD, No Thyromegaly Lungs: Clear to Auscultation Cardiovascular: Regular Rate, Regular Rhythm, No Murmurs GI/Abdominal Exam: Normal Bowel Sounds, Soft, Non-Tender Back Exam: Normal Inspection Extremities: Pedal Edema (3 plus) - Problem List & Annotations (1) Systolic CHF, acute on chronic SNOMED Code(s): 255327104, 977494936 Code(s): I50.23 - ACUTE ON CHRONIC SYSTOLIC (CONGESTIVE) HEART FAILURE Status: Acute Current Visit: Yes (2) CAD (coronary artery disease) of artery bypass graft SNOMED Code(s): 535025183, 27055633, 051978967, 509214115, 382356460 Code(s): I25.810 - ATHEROSCLEROSIS OF CABG W/O ANGINA PECTORIS Status: Acute Current Visit: Yes (3) Paroxysmal A-fib SNOMED Code(s): 713475774 Code(s): I48.0 - PAROXYSMAL ATRIAL FIBRILLATION Status: Acute Current Visit: Yes (4) Diabetes mellitus SNOMED Code(s): 43626117 Code(s): E11.9 - TYPE 2 DIABETES MELLITUS WITHOUT COMPLICATIONS Status: Acute Current Visit: Yes (5) Hypothyroidism SNOMED Code(s): 39315882 Code(s): E03.9 - HYPOTHYROIDISM, UNSPECIFIED Status: Acute Current Visit : Yes - Problem List Review Problem List Initiated/Reviewed/Updated: Yes - My Orders Last 24 Hours: My Active Orders 04/08/18 21:00 Sertraline [Zoloft] 25 mg PO BEDTIME 04/08/18 22:50 Carboxymethylcellulose Sodium [Refresh Plus 0.5%] 1 each EYEBOTH ASDIRECTED PRN 04/09/18 07:30 Patient Status [ADT] Routine 04/09/18 07:37 Consult to Physician [CONS] Routine 04/09/18 07:38 Notify Provider Consults [RC] ASDIRECTED 04/09/18 09:00 Furosemide [Lasix] 40 mg IVPUSH BID Metoprolol Tartrate [Lopressor] 100 mg PO Q12H 04/09/18 09:14 Consult to Home Health [CONS] Routine 04/09/18 17:56 Blood Glucose Check, Bedside [RC] QIDACANDBED 04/09/18 21:00 Insulin Glarg,Human.Rec.Analog [LantUS Solostar] 12 units SUBCUT BEDTIME 04/10/18 05:11 BASIC METABOLIC PANEL,BMP [CHEM] AM BASIC METABOLIC PANEL,BMP [CHEM] AM CBC W/O DIFF,HEMOGRAM [HEME] AM MAGNESIUM [CHEM] AM PHOSPHORUS [CHEM] AM 04/10/18 09:00 Digoxin [Lanoxin] 250 mcg PO DAILY 04/11/18 05:11 BASIC METABOLIC PANEL,BMP [CHEM] AM CBC W/O DIFF,HEMOGRAM [HEME] AM 04/12/18 05:11 BASIC METABOLIC PANEL,BMP [CHEM] AM - Plan Plan:: Continue lasix 40 mg iV BID has good urinary output A flutter with RVR- metoprolol increased to 100 mg po BID , HR still 108 , cardiazem 120 mg po was added. Due to low EF , Cardiologyst recommended to d/c cardiazem and give her Digoxin 240 mg po daily.Records from [place] were reviewed. eliquis 5 mg by mouth twice a BID For hypothyroidism patient will be restarted on her home dose of thyroid medication seen. 150 mg by mouth daily,no cytomel due to increase T 3. For diabetes mellitus patient will be started on insulin on sliding scale before meals and at bedtime, f/up HB A1c , also lantus at bedtime Deconditioning patient will need physical therapy in a patient on therapy when medically stable As per Cardiologyst she will need Cardiac cath and AICD
[2018-04-10] MEDS: Levothyroxine 75 MCG Tab PO SCH (06:52)
[2018-04-10] MEDS: Insulin Aspart 100 Units/ML 3 ML Pen SUBCUT SCH ×4 (06:53→20:49)
[2018-04-10] MEDS: Furosemide 40 MG/4 ML VIAL IVPUSH SCH ×2 (08:44→20:54)
[2018-04-10] MEDS: Digoxin 250 MCG Tab PO SCH (08:45)
[2018-04-10] MEDS: Apixaban 5 MG Tab PO SCH (08:45)
[2018-04-10] MEDS: Metoprolol Tartrate 50 MG Tab PO SCH ×2 (08:45→20:54)
[2018-04-10] MEDS: Famotidine 20 MG Tab PO SCH (08:46)
[2018-04-10] MEDS: Sennosides 8.6 MG Tab PO SCH (08:47)
[2018-04-10] MEDS: Potassium Chloride 20 MEQ Tab.ER PO SCH (08:47)
[2018-04-10] MEDS: Cholecalciferol (Vitamin D3) 1,000 Unit Tab PO SCH (08:48)
[2018-04-10] MEDS ORDERED: Lisinopril 10 MG Tab PO SCH (09:00)
[2018-04-10] MEDS ORDERED: Furosemide 20 MG/2 ML VIAL IVPUSH ONE (12:00)
--- NOTE | 2018-04-10 13:29 | PCM.PN ---
- General Info Date of Service: 04/10/18 Admission Dx/Problem (Free Text): 72F hx CAD s/p CABG x 5 in 2000 hx chronic persistent afib cardiomyopathy LVEF now 10% morbid obesity DM HTN HLP former smoker, with acute decompensated systolic HF. Subjective Update: she felt tired, still in afib HR running 70-100, on metoprolol 100 BID with digoxin 250 daily, Cr slightly increased from 1.4 to 1.5 she is fluid restricted , urine output was poor, lasix 40 IV BID. Lisinopril was not given, cardizem 120 was given yesterday for HR controlled, and it was discontinued.BP was running 90-100 SBP Based on the conversation yesterday, she decided not to be put in hospice anymore she wanted everything aggressive to be done. - Review of Systems General: Reports: Weakness Pulmonary: Reports: Shortness of Breath Cardiovascular: Reports: No Symptoms Gastrointestinal: Reports: Decreased Appetite - Patient Data Vitals - Most Recent: Last Vital Signs Temp 36.4 C 04/10/18 11:29 Pulse 54 L 04/10/18 11:29 Resp 98 H 04/10/18 11:29 BP 108/66 04/10/18 11:29 Pulse Ox 92 L 04/10/18 11:29 Weight - Most Recent: 88.5 kg I&O - Last 24 Hours: Intake & Output 04/09/18 04/10/18 04/10/18 22:59 06:59 14:59 Intake Total 560 200 Output Total 500 250 Balance 60 -50 Lab Results Last 24 Hours: Laboratory Results - last 24 hr 04/08/18 04/09/18 04/09/18 Range/Units 06:01 16:18 20:48 WBC (4.0-11.0) K/uL RBC (4.30-5.90) M/uL Hgb (12.0-16.0) g/dL Hct (36.0-46.0) % MCV (80.0-98.0) fL MCH (27.0-32.0) pg MCHC (31.0-37.0) g/dL RDW Std Deviation (28.0-62.0) fl RDW Coeff of Jalen (11.0-15.0) % Plt Count (150-400) K/uL MPV (7.40-12.00) fL Nucleated RBC % /100WBC Nucleated RBCs # K/uL Sodium (136-145) mmol/L Potassium (3.5-5.1) mmol/L Chloride (98-107) mmol/L Carbon Dioxide (21.0-32.0) mmol/L BUN (7.0-18.0) mg/dL Creatinine (0.6-1.0) mg/dL Est Cr Clr Drug Dosing mL/min Estimated GFR (MDRD) ml/min Glucose (74-106) mg/dL POC Glucose 201 H 179 H (60-110) mg/dL Calcium (8.5-10.1) mg/dL Phosphorus (2.6-4.7) mg/dL Magnesium (1.8-2.4) mg/dL Vitamin D 25-Hydroxy 19 L (30-100) ng/mL 04/10/18 04/10/18 04/10/18 Range/Units 05:30 05:30 06:25 WBC 10.66 (4.0-11.0) K/uL RBC 4.63 (4.30-5.90) M/uL Hgb 12.8 (12.0-16.0) g/dL Hct 40.4 (36.0-46.0) % MCV 87.3 (80.0-98.0) fL MCH 27.6 (27.0-32.0) pg MCHC 31.7 (31.0-37.0) g/dL RDW Std Deviation 56.0 (28.0-62.0) fl RDW Coeff of Jalen 18 H (11.0-15.0) % Plt Count 269 (150-400) K/uL MPV 10.60 (7.40-12.00) fL Nucleated RBC % 0.0 /100WBC Nucleated RBCs # 0 K/uL Sodium 135 L (136-145) mmol/L Potassium 4.0 (3.5-5.1) mmol/L Chloride 101 (98-107) mmol/L Carbon Dioxide 31.6 (21.0-32.0) mmol/L BUN 34 H (7.0-18.0) mg/dL Creatinine 1.6 H (0.6-1.0) mg/dL Est Cr Clr Drug Dosing 26.29 mL/min Estimated GFR (MDRD) 31.7 ml/min Glucose 169 H (74-106) mg/dL POC Glucose 160 H (60-110) mg/dL Calcium 8.2 L (8.5-10.1) mg/dL Phosphorus 3.8 (2.6-4.7) mg/dL Magnesium 2.0 (1.8-2.4) mg/dL Vitamin D 25-Hydroxy (30-100) ng/mL Med Orders - Current: Current Medications Acetaminophen (Tylenol) 650 mg PO Q4H PRN PRN Reason: Pain (Mild 1-3)/fever Apixaban (Eliquis) 5 mg PO BID [facility] Last Admin: 04/10/18 08:45 Dose: 5 mg Artificial Tears (Refresh Plus 0.5%) 1 each EYEBOTH ASDIRECTED PRN PRN Reason: Dry Eyes Last Admin: 04/09/18 21:53 Dose: 1 drop Cholecalciferol (Vitamin D3) 2,000 units PO DAILY [facility] Last Admin: 04/10/18 08:48 Dose: 2,000 units Digoxin (Lanoxin) 250 mcg PO DAILY [facility] Last Admin: 04/10/18 08:45 Dose: 250 mcg Docusate Sodium (Colace) 100 mg PO BID PRN PRN Reason: Constipation Famotidine (Pepcid) 20 mg PO DAILY [facility] Last Admin: 04/10/18 08:46 Dose: 20 mg Furosemide (Lasix) 40 mg IVPUSH BID [facility] Last Admin: 04/10/18 08:44 Dose: Not Given Ceftriaxone Sodium 1 gm/ (Sodium Chloride) 50 mls @ 100 mls/hr IV Q24H [facility] Last Admin: 04/09/18 21:05 Dose: 100 mls/hr Insulin Aspart (Novolog) 0 unit SUBCUT ACBED [facility]; Protocol Last Admin: 04/10/18 11:58 Dose: 2 units Insulin Glargine (Lantus Solostar) 12 units SUBCUT BEDTIME [facility] Last Admin: 04/09/18 21:08 Dose: 12 units Levothyroxine Sodium (Levothyroxine) 150 mcg PO ACBREAKFAST [facility] Last Admin: 04/10/18 06:52 Dose: 150 mcg Lorazepam (Ativan) 0.5 mg PO Q2HR PRN PRN Reason: Anxiety Metoprolol Tartrate (Lopressor) 100 mg PO Q12H [facility] Last Admin: 04/10/18 08:45 Dose: Not Given Ondansetron HCl (Zofran) 4 mg IVPUSH Q4H PRN PRN Reason: Nausea Potassium Chloride (Klor-Con M20) 40 meq PO DAILY [facility] Last Admin: 04/10/18 08:47 Dose: Not Given Senna (Senna) 8.6 mg PO DAILY [facility] Last Admin: 04/10/18 08:47 Dose: Not Given Sertraline HCl (Zoloft) 25 mg PO BEDTIME [facility] Last Admin: 04/09/18 21:06 Dose: 25 mg Sodium Chloride (Saline Flush) 10 ml FLUSH ASDIRECTED PRN PRN Reason: Keep Vein Open Last Admin: 04/06/18 10:52 Dose: 10 ml Sodium Chloride (Saline Flush) 2.5 ml FLUSH ASDIRECTED PRN PRN Reason: Keep Vein Open Last Admin: 04/06/18 10:52 Dose: 2.5 ml Sodium Chloride (Saline Flush) 10 ml FLUSH ASDIRECTED PRN PRN Reason: Keep Vein Open Sodium Chloride (Saline Flush) 2.5 ml FLUSH ASDIRECTED PRN PRN Reason: Keep Vein Open Discontinued Medications Artificial Tears (Refresh Plus 0.5%) 0 each EYEBOTH ASDIRECTED PRN PRN Reason: Dry Eyes Last Admin: 04/08/18 21:15 Dose: 1 drop Cyanocobalamin (Vitamin B12) 1,000 mcg IM ONETIME ONE Stop: 04/07/18 16:22 Last Admin: 04/07/18 16:55 Dose: Not Given Diltiazem HCl (Diltiazem) 20 mg IVPUSH ONETIME ONE Stop: 04/07/18 11:37 Last Admin: 04/07/18 12:18 Dose: 20 mg Diltiazem HCl (Diltiazem) 20 mg IVPUSH ONETIME ONE Stop: 04/07/18 21:14 Last Admin: 04/07/18 21:26 Dose: 20 mg Diltiazem HCl (Cardizem Cd) 120 mg PO ONETIME ONE Stop: 04/08/18 15:36 Last Admin: 04/08/18 16:00 Dose: Not Given Diltiazem HCl (Cardizem Cd) 120 mg PO DAILY [facility] Last Admin: 04/09/18 17:43 Dose: 120 mg Enoxaparin Sodium (Lovenox) 40 mg SUBCUT Q24H [facility] Last Admin: 04/06/18 15:30 Dose: 40 mg Furosemide (Lasix) 60 mg IVPUSH NOW ONE Stop: 04/06/18 12:18 Last Admin: 04/06/18 12:24 Dose: 60 mg Furosemide (Lasix) 80 mg IVPUSH BID [facility] Last Admin: 04/07/18 10:39 Dose: 80 mg Furosemide (Lasix) 40 mg IVPUSH BID [facility] Last Admin: 04/08/18 20:22 Dose: 40 mg Furosemide (Lasix) 40 mg IVPUSH NOW ONE Stop: 04/08/18 12:37 Last Admin: 04/08/18 13:40 Dose: 40 mg Furosemide (Lasix) 60 mg IVPUSH BID [facility] Furosemide (Lasix) 80 mg IVPUSH ONETIME ONE Stop: 04/10/18 12:01 Last Admin: 04/10/18 12:08 Dose: 80 mg Lidocaine HCl (Xylocaine-Mpf 1%) Confirm Administered Dose 5 mls @ as directed .ROUTE .STK-MED ONE Stop: 04/06/18 11:05 Last Admin: 04/06/18 12:32 Dose: Not Given Ceftriaxone Sodium/Dextrose 1 (gm/ Premix) 50 mls @ 100 mls/hr IV Q24H [facility] Last Infusion: 04/06/18 22:10 Dose: Infused Lidocaine HCl (Xylocaine-Mpf 1%) Confirm Administered Dose 5 mls @ as directed .ROUTE .STK-MED ONE Stop: 04/07/18 09:12 Magnesium Sulfate 2 gm/ Premix 50 mls @ 50 mls/hr IV ONETIME ONE Stop: 04/08/18 13:55 Last Admin: 04/08/18 13:41 Dose: 50 mls/hr Insulin Aspart (Novolog) 0 unit SUBCUT ACBREAKFASTANDBED [facility]; Protocol Insulin Aspart (Novolog) 0 unit SUBCUT QIDACANDBED [facility]; Protocol Last Admin: 04/08/18 13:24 Dose: Not Given Insulin Glargine (Lantus Solostar) 7 units SUBCUT BEDTIME [facility] Last Admin: 04/08/18 20:39 Dose: 7 units Insulin Glargine (Lantus Solostar) 7 units SUBCUT ONETIME ONE Stop: 04/09/18 09:31 Last Admin: 04/09/18 09:51 Dose: 7 unit Levothyroxine Sodium (Levothyroxine) 150 mcg PO ACBREAKFAST [facility] Levothyroxine Sodium (Levothyroxine) 75 mcg PO ACBREAKFAST [facility] Levothyroxine Sodium (Synthroid) 100 mcg PO ACBREAKFAST [facility] Lidocaine HCl (Xylocaine-Mpf 1%) 5 ml INJECT ONETIME ONE Stop: 04/06/18 11:06 Last Admin: 04/06/18 11:06 Dose: 5 ml Liothyronine Sodium (Cytomel) 37.5 mcg PO DAILY [facility] Last Admin: 04/08/18 09:39 Dose: Not Given Lisinopril (Prinivil) 5 mg PO DAILY [facility] Last Admin: 04/09/18 08:54 Dose: 5 mg Lisinopril (Prinivil) 5 mg PO ONETIME ONE Stop: 04/09/18 18:36 Last Admin: 04/09/18 18:46 Dose: Not Given Lisinopril (Prinivil) 10 mg PO DAILY [facility] Last Admin: 04/10/18 08:44 Dose: Not Given Metoprolol Tartrate (Lopressor) 25 mg PO Q12H [facility] Last Admin: 04/07/18 15:20 Dose: 25 mg Metoprolol Tartrate (Lopressor) 25 mg PO ONETIME ONE Stop: 04/07/18 16:08 Last Admin: 04/07/18 16:50 Dose: 25 mg Metoprolol Tartrate (Lopressor) 50 mg PO Q12H [facility] Last Admin: 04/07/18 18:44 Dose: Not Given Metoprolol Tartrate (Lopressor) 50 mg PO Q12H [facility] Last Admin: 04/08/18 09:57 Dose: 50 mg Metoprolol Tartrate (Lopressor) 75 mg PO Q12H [facility] Last Admin: 04/08/18 23:53 Dose: 75 mg Metoprolol Tartrate (Lopressor) 25 mg PO ONETIME ONE Stop: 04/08/18 12:37 Last Admin: 04/08/18 13:40 Dose: 25 mg Metoprolol Tartrate (Lopressor) 25 mg PO ONETIME ONE Stop: 04/08/18 17:38 Last Admin: 04/08/18 18:16 Dose: 25 mg Morphine Sulfate (Morphine) 2 mg IVPUSH Q2H PRN PRN Reason: Pain (severe 7-10) Stop: 04/07/18 14:19 Nitroglycerin (Nitro-Bid 2%) 1 gm TOP ONETIME ONE Stop: 04/06/18 10:39 Last Admin: 04/06/18 10:49 Dose: 1 gm Potassium Chloride (Klor-Con M20) 40 meq PO ONETIME ONE Stop: 04/07/18 16:21 Last Admin: 04/07/18 16:50 Dose: 40 meq - Exam General: Alert, Oriented HEENT: Pupils Equal, Pupils Reactive Neck: JVD Lungs: Crackles Cardiovascular: Irregular Rhythm Extremities: Pedal Edema EKG INTERPRETATION Rhythm: A-Flutter - Problem List Review Problem List Initiated/Reviewed/Updated: Yes - Assessment Assessment:: 72F hx CAD s/p CABG x 5 in 2000 hx chronic persistent afib cardiomyopathy LVEF now 10% morbid obesity DM HTN HLP former smoker, with acute decompensated systolic HF. 2009 cath (outside hospital in [place]) reported 3 grafts were open ( to LAD, to OM1 , and OM2, and unknown other 2 grafts), noted RCA TC, SVG to RCA TC. There were no official cath report available 2012 reported stress test was done showed reversible inferior wall, noted to have mid high OM 99% stenosis, and got stented. No echo report available. 1. acute decompensated systolic HF: I am certain how much I can help her if she stayed here, we can be aggressive about her treatment, even though I feel that that may be slim chance for any available heroic treatment. I told her for being aggressive treatment for her heart she would need repeated cardiac cath, get her HR controlled, start her on medication for HF and repeating echo after her HF meds maximized. Because she has relocated so many places her cardiac history was hardly completed. Her urine out put now was poor, recommended to increase lasix to 80 IV, and see how she does in the next few hours, if her urine out was not responded, she would need to be transferred to tertiary care hospital where she can have invasive cardiac testing and monitoring. Her over all prognosis is poor. I will stop ACEI for now and continue metoprolol 100 BID and digoxin 250. I will stop her eliquis for now for possible invasive testing. Current echo showed LVEF 10%, it was noted 15-20% from the admission note back in 01/2018 in [place].
--- NOTE | 2018-04-10 14:40 | ECHO ---
EXAM DATE: 04/09/18 PATIENT'S AGE: 72 The echocardiogram report can be seen in this patient's EMR (Electronic Medical Record) in the Reports section. The report has also been scanned into PACs. ALEXANDER
--- NOTE | 2018-04-10 20:41 | PCM.DCSUM1 ---
Discharge Summary - Hospital Course HPI Initial Comments: 72F hx CAD s/p CABG x 5 in 2000 hx chronic persistent afib cardiomyopathy LVEF now 10% morbid obesity DM HTN HLP former smoker, with acute decompensated systolic HF. 2009 cath (outside hospital in [place]) reported 3 grafts were open ( to LAD, to OM1 , and OM2, and unknown other 2 grafts), noted RCA TC, SVG to RCA TC. There were no official cath report available 2012 reported stress test was done showed reversible inferior wall, noted to have mid high OM 99% stenosis, and got stented. No echo report available. Patient is 72 years old female old says she was on hospice for the month, and due to advanced heart failure , with coronary artery disease, status post CABG, who traveled from [place] to [facility] 2 weeks ago presented to hospital due to increased shortness of breath. Patient was put in hospice because she was told her ejection fraction is 10%, but after she was placed in hospice she continued to improved and she was feeling pretty well until lately when she became short of breath. Patient is able to ambulate on her own and all her medications were stopped 1 1/2 mo ago when she was placed on hospice . In July she drove herself with her truck to [place] and [place]. She also has history of arterial fibrillation and used to be on chronic anticoagulation with eliquis . Denies chest pain. She would like to come off hospice and try to be medically optimized and see superintendent greens on Monday. She wants to have Sidhu catheter and diuresed to get back to her normal weight, denies fever, denies chills denies chest pain. She gained 20 lbs fluid overload since she stopped her home medications Diagnosis: Stroke: No - Discharge Data Discharge Date: 04/10/18 Discharge Disposition: DC/Tfer to Acute Hospital 02 Condition: Fair - Discharge Diagnosis/Problem(s) (1) Systolic CHF, acute on chronic SNOMED Code(s): 848435211, 074714206 ICD Code: I50.23 - ACUTE ON CHRONIC SYSTOLIC (CONGESTIVE) HEART FAILURE Status: Acute Current Visit: Yes (2) CAD (coronary artery disease) of artery bypass graft SNOMED Code(s): 818730121, 30572841, 817230642, 724070463, 851392461 ICD Code: I25.810 - ATHEROSCLEROSIS OF CABG W/O ANGINA PECTORIS Status: Acute Current Visit: Yes (3) Paroxysmal A-fib SNOMED Code(s): 590849490 ICD Code: I48.0 - PAROXYSMAL ATRIAL FIBRILLATION Status: Acute Current Visit: Yes (4) Diabetes mellitus SNOMED Code(s): 06038744 ICD Code: E11.9 - TYPE 2 DIABETES MELLITUS WITHOUT COMPLICATIONS Status: Acute Current Visit: Yes (5) Hypothyroidism SNOMED Code(s): 31878313 ICD Code: E03.9 - HYPOTHYROIDISM, UNSPECIFIED Status: Acute Current Visit : Yes (6) CKD (chronic kidney disease), stage III SNOMED Code(s): 277353716 ICD Code: N18.3 - CHRONIC KIDNEY DISEASE, STAGE 3 (MODERATE) Status: Acute Current Visit: Yes - Patient Summary/Data Consults: Consultations 04/07/18 10:10 OT Evaluation and Treatment [CONS] Routine PT Evaluation and Treatment [CONS] Routine 04/09/18 07:37 Consult to Physician [CONS] Routine 04/09/18 09:14 Consult to Home Health [CONS] Routine Hospital Course: Patient admitted in the hospital with severe SOB and leg edema was diuresed with lasix 80 mg iv BID. She had good urinary output , I/o negative 3500 first day , lasix was decreased and also her urinary output decreased day by day . Creatinine increased to 1.6 today , it was 1.3 at admission. Patient was seen by cardiologyst , had cardiac echo , EF was 10 % . She was in a flutter , a fib on monitor. , U/C HR ap to 140. Patient was started on metoprolol which was titrated up to 100 mg po BID and she was also given digoxin 250 mg po daily , HR: 70-100. Eliquis was d/c today. Patient needs to be transfered as per Cardiology recommendations as she needs cardiac cath and possible Hemodialysis to remove excess fluid.Jaime. hospitalist , she was accepted by DR. Duong. - Patient Instructions Diet: Usual Diet as Tolerated Activity: As Tolerated Driving: May Drive Today Showering/Bathing: May Shower - Discharge Plan Home Medications: Home Meds Furosemide 40 mg PO DAILY 04/06/18 [History] LORazepam [LORazepam Intensol] 0.5 mg PO Q2HR PRN 04/06/18 [History] Levothyroxine 150 mcg PO ACBREAKFAST 04/06/18 [History] Liothyronine [Cytomel] 1.5 tab PO DAILY 04/06/18 [History] Ondansetron [Zofran ODT] 4 mg PO Q6H PRN 04/06/18 [History] Sennosides [Senna] 1 tab PO DAILY 04/06/18 [History] oxyCODONE HCl [Oxycodone HCl] 1 mg PO Q2H PRN 04/06/18 [History] Patient Handouts: Heart Failure, [id number] Referrals: Chuck Sarmiento MD [Primary Care Provider] - 04/25/18 12:45 pm - Discharge Summary/Plan Comment DC Time >30 min.: Yes - General Info Date of Service: 04/10/18 - Review of Systems General: Reports: Fatigue HEENT: Reports: No Symptoms Pulmonary: Reports: No Symptoms Cardiovascular: Reports: Dyspnea on Exertion, Orthopnea, Edema Gastrointestinal: Reports: No Symptoms Genitourinary: Reports: No Symptoms Musculoskeletal: Reports: No Symptoms Skin: Reports: No Symptoms Neurological: Reports: No Symptoms Psychiatric: Reports: No Symptoms - Patient Data Vitals - Most Recent: Last Vital Signs Temp 96.8 F 04/10/18 20:00 Pulse 54 L 04/10/18 16:00 Resp 15 04/10/18 20:00 BP 120/68 04/10/18 20:00 Pulse Ox 97 04/10/18 20:00 Weight - Most Recent: 195 lb 1.745 oz I&O - Last 24 hours: Intake & Output 04/10/18 04/10/18 04/10/18 06:59 14:59 22:59 Intake Total 200 300 Output Total 250 750 Balance -50 -450 Lab Results - Last 24 hrs: Laboratory Results - last 24 hr 04/08/18 04/09/18 04/10/18 Range/Units 06:01 20:48 05:30 WBC (4.0-11.0) K/uL RBC (4.30-5.90) M/uL Hgb (12.0-16.0) g/dL Hct (36.0-46.0) % MCV (80.0-98.0) fL MCH (27.0-32.0) pg MCHC (31.0-37.0) g/dL RDW Std Deviation (28.0-62.0) fl RDW Coeff of Jalen (11.0-15.0) % Plt Count (150-400) K/uL MPV (7.40-12.00) fL Nucleated RBC % /100WBC Nucleated RBCs # K/uL Sodium 135 L (136-145) mmol/L Potassium 4.0 (3.5-5.1) mmol/L Chloride 101 (98-107) mmol/L Carbon Dioxide 31.6 (21.0-32.0) mmol/L BUN 34 H (7.0-18.0) mg/dL Creatinine 1.6 H (0.6-1.0) mg/dL Est Cr Clr Drug Dosing 26.29 mL/min Estimated GFR (MDRD) 31.7 ml/min Glucose 169 H (74-106) mg/dL POC Glucose 179 H (60-110) mg/dL Calcium 8.2 L (8.5-10.1) mg/dL Phosphorus 3.8 (2.6-4.7) mg/dL Magnesium 2.0 (1.8-2.4) mg/dL Vitamin D 25-Hydroxy 19 L (30-100) ng/mL 04/10/18 04/10/18 04/10/18 Range/Units 05:30 06:25 11:42 WBC 10.66 (4.0-11.0) K/uL RBC 4.63 (4.30-5.90) M/uL Hgb 12.8 (12.0-16.0) g/dL Hct 40.4 (36.0-46.0) % MCV 87.3 (80.0-98.0) fL MCH 27.6 (27.0-32.0) pg MCHC 31.7 (31.0-37.0) g/dL RDW Std Deviation 56.0 (28.0-62.0) fl RDW Coeff of Jalen 18 H (11.0-15.0) % Plt Count 269 (150-400) K/uL MPV 10.60 (7.40-12.00) fL Nucleated RBC % 0.0 /100WBC Nucleated RBCs # 0 K/uL Sodium (136-145) mmol/L Potassium (3.5-5.1) mmol/L Chloride (98-107) mmol/L Carbon Dioxide (21.0-32.0) mmol/L BUN (7.0-18.0) mg/dL Creatinine (0.6-1.0) mg/dL Est Cr Clr Drug Dosing mL/min Estimated GFR (MDRD) ml/min Glucose (74-106) mg/dL POC Glucose 160 H 169 H (60-110) mg/dL Calcium (8.5-10.1) mg/dL Phosphorus (2.6-4.7) mg/dL Magnesium (1.8-2.4) mg/dL Vitamin D 25-Hydroxy (30-100) ng/mL 04/10/18 Range/Units 16:38 WBC (4.0-11.0) K/uL RBC (4.30-5.90) M/uL Hgb (12.0-16.0) g/dL Hct (36.0-46.0) % MCV (80.0-98.0) fL MCH (27.0-32.0) pg MCHC (31.0-37.0) g/dL RDW Std Deviation (28.0-62.0) fl RDW Coeff of Jalen (11.0-15.0) % Plt Count (150-400) K/uL MPV (7.40-12.00) fL Nucleated RBC % /100WBC Nucleated RBCs # K/uL Sodium (136-145) mmol/L Potassium (3.5-5.1) mmol/L Chloride (98-107) mmol/L Carbon Dioxide (21.0-32.0) mmol/L BUN (7.0-18.0) mg/dL Creatinine (0.6-1.0) mg/dL Est Cr Clr Drug Dosing mL/min Estimated GFR (MDRD) ml/min Glucose (74-106) mg/dL POC Glucose 181 H (60-110) mg/dL Calcium (8.5-10.1) mg/dL Phosphorus (2.6-4.7) mg/dL Magnesium (1.8-2.4) mg/dL Vitamin D 25-Hydroxy (30-100) ng/mL Med Orders - Current: Current Medications Acetaminophen (Tylenol) 650 mg PO Q4H PRN PRN Reason: Pain (Mild 1-3)/fever Artificial Tears (Refresh Plus 0.5%) 1 each EYEBOTH ASDIRECTED PRN PRN Reason: Dry Eyes Last Admin: 04/09/18 21:53 Dose: 1 drop Cholecalciferol (Vitamin D3) 2,[address] [facility] Last Admin: 04/10/18 08:48 Dose: 2,000 units Digoxin (Lanoxin) [address] [facility] Last Admin: 04/10/18 08:45 Dose: 250 mcg Docusate Sodium (Colace) 100 mg PO BID PRN PRN Reason: Constipation Famotidine (Pepcid) [address] [facility] Last Admin: 04/10/18 08:46 Dose: 20 mg Furosemide (Lasix) [address] [facility] Last Admin: 04/10/18 08:44 Dose: Not Given Ceftriaxone Sodium 1 gm/ (Sodium Chloride) 50 mls @ 100 mls/hr IV Q24H [facility] Last Admin: 04/09/18 21:05 Dose: 100 mls/hr Insulin Aspart (Novolog) [address] [facility]; Protocol Last Admin: 04/10/18 17:16 Dose: 2 units Insulin Glargine (Lantus Solostar) [address] [facility] Last Admin: 04/09/18 21:08 Dose: 12 units Levothyroxine Sodium (Levothyroxine) [address] [facility] Last Admin: 04/10/18 06:52 Dose: 150 mcg Lorazepam (Ativan) 0.5 mg PO Q2HR PRN PRN Reason: Anxiety Metoprolol Tartrate (Lopressor) [address] [facility] Last Admin: 04/10/18 08:45 Dose: Not Given Ondansetron HCl (Zofran) 4 mg IVPUSH Q4H PRN PRN Reason: Nausea Potassium Chloride (Klor-Con M20) [address] [facility] Last Admin: 04/10/18 08:47 Dose: Not Given Senna (Senna) 8.[address] [facility] Last Admin: 04/10/18 08:47 Dose: Not Given Sertraline HCl (Zoloft) [address] [facility] Last Admin: 04/09/18 21:06 Dose: 25 mg Sodium Chloride (Saline Flush) 10 ml FLUSH ASDIRECTED PRN PRN Reason: Keep Vein Open Last Admin: 04/06/18 10:52 Dose: 10 ml Sodium Chloride (Saline Flush) 2.5 ml FLUSH ASDIRECTED PRN PRN Reason: Keep Vein Open Last Admin: 04/06/18 10:52 Dose: 2.5 ml Sodium Chloride (Saline Flush) 10 ml FLUSH ASDIRECTED PRN PRN Reason: Keep Vein Open Sodium Chloride (Saline Flush) 2.5 ml FLUSH ASDIRECTED PRN PRN Reason: Keep Vein Open Discontinued Medications Apixaban (Eliquis) [address] [facility] Last Admin: 04/10/18 08:45 Dose: 5 mg Artificial Tears (Refresh Plus 0.5%) 0 each EYEBOTH ASDIRECTED PRN PRN Reason: Dry Eyes Last Admin: 04/08/18 21:15 Dose: 1 drop Cyanocobalamin (Vitamin B12) 1,000 mcg IM ONETIME ONE Stop: 04/07/18 16:22 Last Admin: 04/07/18 16:55 Dose: Not Given Diltiazem HCl (Diltiazem) 20 mg IVPUSH ONETIME ONE Stop: 04/07/18 11:37 Last Admin: 04/07/18 12:18 Dose: 20 mg Diltiazem HCl (Diltiazem) 20 mg IVPUSH ONETIME ONE Stop: 04/07/18 21:14 Last Admin: 04/07/18 21:26 Dose: 20 mg Diltiazem HCl (Cardizem Cd) 120 mg PO ONETIME ONE Stop: 04/08/18 15:36 Last Admin: 04/08/18 16:00 Dose: Not Given Diltiazem HCl (Cardizem Cd) [address] [facility] Last Admin: 04/09/18 17:43 Dose: 120 mg Enoxaparin Sodium (Lovenox) [address] [facility] Last Admin: 04/06/18 15:30 Dose: 40 mg Furosemide (Lasix) 60 mg IVPUSH NOW ONE Stop: 04/06/18 12:18 Last Admin: 04/06/18 12:24 Dose: 60 mg Furosemide (Lasix) [address] [facility] Last Admin: 04/07/18 10:39 Dose: 80 mg Furosemide (Lasix) [address] [facility] Last Admin: 04/08/18 20:22 Dose: 40 mg Furosemide (Lasix) 40 mg IVPUSH NOW ONE Stop: 04/08/18 12:37 Last Admin: 04/08/18 13:40 Dose: 40 mg Furosemide (Lasix) 60 mg IVPUSH BID [facility] Furosemide (Lasix) 80 mg IVPUSH ONETIME ONE Stop: 04/10/18 12:01 Last Admin: 04/10/18 12:08 Dose: 80 mg Lidocaine HCl (Xylocaine-Mpf 1%) Confirm Administered Dose 5 mls @ as directed .ROUTE .STK-MED ONE Stop: 04/06/18 11:05 Last Admin: 04/06/18 12:32 Dose: Not Given Ceftriaxone Sodium/Dextrose 1 (gm/ Premix) 50 mls @ 100 mls/hr IV Q24H [facility] Last Infusion: 04/06/18 22:10 Dose: Infused Lidocaine HCl (Xylocaine-Mpf 1%) Confirm Administered Dose 5 mls @ as directed .ROUTE .STK-MED ONE Stop: 04/07/18 09:12 Magnesium Sulfate 2 gm/ Premix 50 mls @ 50 mls/hr IV ONETIME ONE Stop: 04/08/18 13:55 Last Admin: 04/08/18 13:41 Dose: 50 mls/hr Insulin Aspart (Novolog) 0 unit SUBCUT ACBREAKFASTANDBED [facility]; Protocol Insulin Aspart (Novolog) 0 unit SUBCUT QIDACANDBED [facility]; Protocol Last Admin: 04/08/18 13:24 Dose: Not Given Insulin Glargine (Lantus Solostar) 7 units SUBCUT BEDTIME [facility] Last Admin: 04/08/18 20:39 Dose: 7 units Insulin Glargine (Lantus Solostar) 7 units SUBCUT ONETIME ONE Stop: 04/09/18 09:31 Last Admin: 04/09/18 09:51 Dose: 7 unit Levothyroxine Sodium (Levothyroxine) 150 mcg PO ACBREAKFAST [facility] Levothyroxine Sodium (Levothyroxine) 75 mcg PO ACBREAKFAST [facility] Levothyroxine Sodium (Synthroid) 100 mcg PO ACBREAKFAST [facility] Lidocaine HCl (Xylocaine-Mpf 1%) 5 ml INJECT ONETIME ONE Stop: 04/06/18 11:06 Last Admin: 04/06/18 11:06 Dose: 5 ml Liothyronine Sodium (Cytomel) 37.5 mcg PO DAILY [facility] Last Admin: 04/08/18 09:39 Dose: Not Given Lisinopril (Prinivil) [address] [facility] Last Admin: 04/09/18 08:54 Dose: 5 mg Lisinopril (Prinivil) 5 mg PO ONETIME ONE Stop: 04/09/18 18:36 Last Admin: 04/09/18 18:46 Dose: Not Given Lisinopril (Prinivil) [address] [facility] Last Admin: 04/10/18 08:44 Dose: Not Given Metoprolol Tartrate (Lopressor) [address] [facility] Last Admin: 04/07/18 15:20 Dose: 25 mg Metoprolol Tartrate (Lopressor) 25 mg PO ONETIME ONE Stop: 04/07/18 16:08 Last Admin: 04/07/18 16:50 Dose: 25 mg Metoprolol Tartrate (Lopressor) [address] [facility] Last Admin: 04/07/18 18:44 Dose: Not Given Metoprolol Tartrate (Lopressor) [address] [facility] Last Admin: 04/08/18 09:57 Dose: 50 mg Metoprolol Tartrate (Lopressor) [address] [facility] Last Admin: 04/08/18 23:53 Dose: 75 mg Metoprolol Tartrate (Lopressor) 25 mg PO ONETIME ONE Stop: 04/08/18 12:37 Last Admin: 04/08/18 13:40 Dose: 25 mg Metoprolol Tartrate (Lopressor) 25 mg PO ONETIME ONE Stop: 04/08/18 17:38 Last Admin: 04/08/18 18:16 Dose: 25 mg Morphine Sulfate (Morphine) 2 mg IVPUSH Q2H PRN PRN Reason: Pain (severe 7-10) Stop: 04/07/18 14:19 Nitroglycerin (Nitro-Bid 2%) 1 gm TOP ONETIME ONE Stop: 04/06/18 10:39 Last Admin: 04/06/18 10:49 Dose: 1 gm Potassium Chloride (Klor-Con M20) 40 meq PO ONETIME ONE Stop: 04/07/18 16:21 Last Admin: 04/07/18 16:50 Dose: 40 meq - Exam General: Reports: Alert, Oriented HEENT: Reports: Pupils Equal, Pupils Reactive Neck: Reports: Supple, Trachea Midline, No JVD, No Thyromegaly Lungs: Reports: Clear to Auscultation, Normal Respiratory Effort Cardiovascular: Reports: Regular Rate, Regular Rhythm, No Murmurs GI/Abdominal Exam: Normal Bowel Sounds, Soft, Non-Tender, No Organomegaly, No Distention Extremities: Pedal Edema (3 plus) Skin: Reports: Warm, Dry, Intact Neurological: Reports: No New Focal Deficit Psy/Mental Status: Reports: Alert, Normal Mood
[2018-04-10] MEDS: Insulin Glargine,Human Rec. Analog 100 Units/ML 3 ML Pen SUBCUT SCH (20:51)
[2018-04-10] MEDS: Sertraline 25 MG Tab PO SCH (20:52)
[2018-04-10] MEDS: cefTRIAXone 1 GM in Sodium Chloride 0.9% 50 ML IV SCH (20:55)
--- NOTE | 2018-04-10 23:44 | PCM.PN ---
- Patient Data Vitals - Most Recent: Last Vital Signs Temp 97.2 F 04/10/18 23:42 Pulse 69 04/10/18 23:42 Resp 17 04/10/18 23:42 BP 126/70 04/10/18 23:42 Pulse Ox 95 04/10/18 23:42 Weight - Most Recent: 195 lb 1.745 oz I&O - Last 24 Hours: Intake & Output 04/10/18 04/10/18 04/11/18 14:59 22:59 06:59 Intake Total 300 Output Total 750 Balance -450 Lab Results Last 24 Hours: Laboratory Results - last 24 hr 04/08/18 04/10/18 04/10/18 Range/Units 06:01 05:30 05:30 WBC 10.66 (4.0-11.0) K/uL RBC 4.63 (4.30-5.90) M/uL Hgb 12.8 (12.0-16.0) g/dL Hct 40.4 (36.0-46.0) % MCV 87.3 (80.0-98.0) fL MCH 27.6 (27.0-32.0) pg MCHC 31.7 (31.0-37.0) g/dL RDW Std Deviation 56.0 (28.0-62.0) fl RDW Coeff of Jalen 18 H (11.0-15.0) % Plt Count 269 (150-400) K/uL MPV 10.60 (7.40-12.00) fL Nucleated RBC % 0.0 /100WBC Nucleated RBCs # 0 K/uL Sodium 135 L (136-145) mmol/L Potassium 4.0 (3.5-5.1) mmol/L Chloride 101 (98-107) mmol/L Carbon Dioxide 31.6 (21.0-32.0) mmol/L BUN 34 H (7.0-18.0) mg/dL Creatinine 1.6 H (0.6-1.0) mg/dL Est Cr Clr Drug Dosing 26.29 mL/min Estimated GFR (MDRD) 31.7 ml/min Glucose 169 H (74-106) mg/dL POC Glucose (60-110) mg/dL Calcium 8.2 L (8.5-10.1) mg/dL Phosphorus 3.8 (2.6-4.7) mg/dL Magnesium 2.0 (1.8-2.4) mg/dL Vitamin D 25-Hydroxy 19 L (30-100) ng/mL 04/10/18 04/10/18 04/10/18 Range/Units 06:25 11:42 16:38 WBC (4.0-11.0) K/uL RBC (4.30-5.90) M/uL Hgb (12.0-16.0) g/dL Hct (36.0-46.0) % MCV (80.0-98.0) fL MCH (27.0-32.0) pg MCHC (31.0-37.0) g/dL RDW Std Deviation (28.0-62.0) fl RDW Coeff of Jalen (11.0-15.0) % Plt Count (150-400) K/uL MPV (7.40-12.00) fL Nucleated RBC % /100WBC Nucleated RBCs # K/uL Sodium (136-145) mmol/L Potassium (3.5-5.1) mmol/L Chloride (98-107) mmol/L Carbon Dioxide (21.0-32.0) mmol/L BUN (7.0-18.0) mg/dL Creatinine (0.6-1.0) mg/dL Est Cr Clr Drug Dosing mL/min Estimated GFR (MDRD) ml/min Glucose (74-106) mg/dL POC Glucose 160 H 169 H 181 H (60-110) mg/dL Calcium (8.5-10.1) mg/dL Phosphorus (2.6-4.7) mg/dL Magnesium (1.8-2.4) mg/dL Vitamin D 25-Hydroxy (30-100) ng/mL 04/10/18 Range/Units 20:47 WBC (4.0-11.0) K/uL RBC (4.30-5.90) M/uL Hgb (12.0-16.0) g/dL Hct (36.0-46.0) % MCV (80.0-98.0) fL MCH (27.0-32.0) pg MCHC (31.0-37.0) g/dL RDW Std Deviation (28.0-62.0) fl RDW Coeff of Jalen (11.0-15.0) % Plt Count (150-400) K/uL MPV (7.40-12.00) fL Nucleated RBC % /100WBC Nucleated RBCs # K/uL Sodium (136-145) mmol/L Potassium (3.5-5.1) mmol/L Chloride (98-107) mmol/L Carbon Dioxide (21.0-32.0) mmol/L BUN (7.0-18.0) mg/dL Creatinine (0.6-1.0) mg/dL Est Cr Clr Drug Dosing mL/min Estimated GFR (MDRD) ml/min Glucose (74-106) mg/dL POC Glucose 204 H (60-110) mg/dL Calcium (8.5-10.1) mg/dL Phosphorus (2.6-4.7) mg/dL Magnesium (1.8-2.4) mg/dL Vitamin D 25-Hydroxy (30-100) ng/mL Med Orders - Current: Current Medications Acetaminophen (Tylenol) 650 mg PO Q4H PRN PRN Reason: Pain (Mild 1-3)/fever Artificial Tears (Refresh Plus 0.5%) 1 each EYEBOTH ASDIRECTED PRN PRN Reason: Dry Eyes Last Admin: 04/09/18 21:53 Dose: 1 drop Cholecalciferol (Vitamin D3) 2,000 units PO DAILY [facility] Last Admin: 04/10/18 08:48 Dose: 2,000 units Digoxin (Lanoxin) 250 mcg PO DAILY [facility] Last Admin: 04/10/18 08:45 Dose: 250 mcg Docusate Sodium (Colace) 100 mg PO BID PRN PRN Reason: Constipation Famotidine (Pepcid) 20 mg PO DAILY [facility] Last Admin: 04/10/18 08:46 Dose: 20 mg Furosemide (Lasix) 40 mg IVPUSH BID [facility] Last Admin: 04/10/18 20:54 Dose: 40 mg Ceftriaxone Sodium 1 gm/ (Sodium Chloride) 50 mls @ 100 mls/hr IV Q24H [facility] Last Admin: 04/10/18 20:55 Dose: 100 mls/hr Insulin Aspart (Novolog) 0 unit SUBCUT ACBED [facility]; Protocol Last Admin: 04/10/18 20:49 Dose: 4 units Insulin Glargine (Lantus Solostar) 12 units SUBCUT BEDTIME [facility] Last Admin: 04/10/18 20:51 Dose: 12 units Levothyroxine Sodium (Levothyroxine) 150 mcg PO ACBREAKFAST [facility] Last Admin: 04/10/18 06:52 Dose: 150 mcg Lorazepam (Ativan) 0.5 mg PO Q2HR PRN PRN Reason: Anxiety Metoprolol Tartrate (Lopressor) 100 mg PO Q12H [facility] Last Admin: 04/10/18 20:54 Dose: Not Given Ondansetron HCl (Zofran) 4 mg IVPUSH Q4H PRN PRN Reason: Nausea Potassium Chloride (Klor-Con M20) 40 meq PO DAILY [facility] Last Admin: 04/10/18 08:47 Dose: Not Given Senna (Senna) 8.6 mg PO DAILY [facility] Last Admin: 04/10/18 08:47 Dose: Not Given Sertraline HCl (Zoloft) 25 mg PO BEDTIME [facility] Last Admin: 04/10/18 20:52 Dose: 25 mg Sodium Chloride (Saline Flush) 10 ml FLUSH ASDIRECTED PRN PRN Reason: Keep Vein Open Last Admin: 04/06/18 10:52 Dose: 10 ml Sodium Chloride (Saline Flush) 2.5 ml FLUSH ASDIRECTED PRN PRN Reason: Keep Vein Open Last Admin: 04/06/18 10:52 Dose: 2.5 ml Sodium Chloride (Saline Flush) 10 ml FLUSH ASDIRECTED PRN PRN Reason: Keep Vein Open Sodium Chloride (Saline Flush) 2.5 ml FLUSH ASDIRECTED PRN PRN Reason: Keep Vein Open Discontinued Medications Apixaban (Eliquis) 5 mg PO BID [facility] Last Admin: 04/10/18 08:45 Dose: 5 mg Artificial Tears (Refresh Plus 0.5%) 0 each EYEBOTH ASDIRECTED PRN PRN Reason: Dry Eyes Last Admin: 04/08/18 21:15 Dose: 1 drop Cyanocobalamin (Vitamin B12) 1,000 mcg IM ONETIME ONE Stop: 04/07/18 16:22 Last Admin: 04/07/18 16:55 Dose: Not Given Diltiazem HCl (Diltiazem) 20 mg IVPUSH ONETIME ONE Stop: 04/07/18 11:37 Last Admin: 04/07/18 12:18 Dose: 20 mg Diltiazem HCl (Diltiazem) 20 mg IVPUSH ONETIME ONE Stop: 04/07/18 21:14 Last Admin: 04/07/18 21:26 Dose: 20 mg Diltiazem HCl (Cardizem Cd) 120 mg PO ONETIME ONE Stop: 04/08/18 15:36 Last Admin: 04/08/18 16:00 Dose: Not Given Diltiazem HCl (Cardizem Cd) 120 mg PO DAILY [facility] Last Admin: 04/09/18 17:43 Dose: 120 mg Enoxaparin Sodium (Lovenox) 40 mg SUBCUT Q24H [facility] Last Admin: 04/06/18 15:30 Dose: 40 mg Furosemide (Lasix) 60 mg IVPUSH NOW ONE Stop: 04/06/18 12:18 Last Admin: 04/06/18 12:24 Dose: 60 mg Furosemide (Lasix) 80 mg IVPUSH BID [facility] Last Admin: 04/07/18 10:39 Dose: 80 mg Furosemide (Lasix) 40 mg IVPUSH BID [facility] Last Admin: 04/08/18 20:22 Dose: 40 mg Furosemide (Lasix) 40 mg IVPUSH NOW ONE Stop: 04/08/18 12:37 Last Admin: 04/08/18 13:40 Dose: 40 mg Furosemide (Lasix) 60 mg IVPUSH BID [facility] Furosemide (Lasix) 80 mg IVPUSH ONETIME ONE Stop: 04/10/18 12:01 Last Admin: 04/10/18 12:08 Dose: 80 mg Lidocaine HCl (Xylocaine-Mpf 1%) Confirm Administered Dose 5 mls @ as directed .ROUTE .STK-MED ONE Stop: 04/06/18 11:05 Last Admin: 04/06/18 12:32 Dose: Not Given Ceftriaxone Sodium/Dextrose 1 (gm/ Premix) 50 mls @ 100 mls/hr IV Q24H [facility] Last Infusion: 04/06/18 22:10 Dose: Infused Lidocaine HCl (Xylocaine-Mpf 1%) Confirm Administered Dose 5 mls @ as directed .ROUTE .STK-MED ONE Stop: 04/07/18 09:12 Magnesium Sulfate 2 gm/ Premix 50 mls @ 50 mls/hr IV ONETIME ONE Stop: 04/08/18 13:55 Last Admin: 04/08/18 13:41 Dose: 50 mls/hr Insulin Aspart (Novolog) 0 unit SUBCUT ACBREAKFASTANDBED [facility]; Protocol Insulin Aspart (Novolog) 0 unit SUBCUT QIDACANDBED [facility]; Protocol Last Admin: 04/08/18 13:24 Dose: Not Given Insulin Glargine (Lantus Solostar) 7 units SUBCUT BEDTIME [facility] Last Admin: 04/08/18 20:39 Dose: 7 units Insulin Glargine (Lantus Solostar) 7 units SUBCUT ONETIME ONE Stop: 04/09/18 09:31 Last Admin: 04/09/18 09:51 Dose: 7 unit Levothyroxine Sodium (Levothyroxine) 150 mcg PO ACBREAKFAST [facility] Levothyroxine Sodium (Levothyroxine) 75 mcg PO ACBREAKFAST [facility] Levothyroxine Sodium (Synthroid) 100 mcg PO ACBREAKFAST [facility] Lidocaine HCl (Xylocaine-Mpf 1%) 5 ml INJECT ONETIME ONE Stop: 04/06/18 11:06 Last Admin: 04/06/18 11:06 Dose: 5 ml Liothyronine Sodium (Cytomel) 37.5 mcg PO DAILY [facility] Last Admin: 04/08/18 09:39 Dose: Not Given Lisinopril (Prinivil) 5 mg PO DAILY [facility] Last Admin: 04/09/18 08:54 Dose: 5 mg Lisinopril (Prinivil) 5 mg PO ONETIME ONE Stop: 04/09/18 18:36 Last Admin: 04/09/18 18:46 Dose: Not Given Lisinopril (Prinivil) 10 mg PO DAILY [facility] Last Admin: 04/10/18 08:44 Dose: Not Given Metoprolol Tartrate (Lopressor) 25 mg PO Q12H [facility] Last Admin: 04/07/18 15:20 Dose: 25 mg Metoprolol Tartrate (Lopressor) 25 mg PO ONETIME ONE Stop: 04/07/18 16:08 Last Admin: 04/07/18 16:50 Dose: 25 mg Metoprolol Tartrate (Lopressor) 50 mg PO Q12H [facility] Last Admin: 04/07/18 18:44 Dose: Not Given Metoprolol Tartrate (Lopressor) 50 mg PO Q12H [facility] Last Admin: 04/08/18 09:57 Dose: 50 mg Metoprolol Tartrate (Lopressor) 75 mg PO Q12H [facility] Last Admin: 04/08/18 23:53 Dose: 75 mg Metoprolol Tartrate (Lopressor) 25 mg PO ONETIME ONE Stop: 04/08/18 12:37 Last Admin: 04/08/18 13:40 Dose: 25 mg Metoprolol Tartrate (Lopressor) 25 mg PO ONETIME ONE Stop: 04/08/18 17:38 Last Admin: 04/08/18 18:16 Dose: 25 mg Morphine Sulfate (Morphine) 2 mg IVPUSH Q2H PRN PRN Reason: Pain (severe 7-10) Stop: 04/07/18 14:19 Nitroglycerin (Nitro-Bid 2%) 1 gm TOP ONETIME ONE Stop: 04/06/18 10:39 Last Admin: 04/06/18 10:49 Dose: 1 gm Potassium Chloride (Klor-Con M20) 40 meq PO ONETIME ONE Stop: 04/07/18 16:21 Last Admin: 04/07/18 16:50 Dose: 40 meq - Problem List & Annotations (1) Systolic CHF, acute on chronic SNOMED Code(s): 464152172, 737128917 Code(s): I50.23 - ACUTE ON CHRONIC SYSTOLIC (CONGESTIVE) HEART FAILURE Status: Acute Current Visit: Yes (2) CAD (coronary artery disease) of artery bypass graft SNOMED Code(s): 137365732, 83114324, 401821949, 162795208, 120139932 Code(s): I25.810 - ATHEROSCLEROSIS OF CABG W/O ANGINA PECTORIS Status: Acute Current Visit: Yes (3) Paroxysmal A-fib SNOMED Code(s): 296524955 Code(s): I48.0 - PAROXYSMAL ATRIAL FIBRILLATION Status: Acute Current Visit: Yes (4) Diabetes mellitus SNOMED Code(s): 67629606 Code(s): E11.9 - TYPE 2 DIABETES MELLITUS WITHOUT COMPLICATIONS Status: Acute Current Visit: Yes (5) Hypothyroidism SNOMED Code(s): 85485082 Code(s): E03.9 - HYPOTHYROIDISM, UNSPECIFIED Status: Acute Current Visit : Yes (6) CKD (chronic kidney disease), stage III SNOMED Code(s): 308049585 Code(s): N18.3 - CHRONIC KIDNEY DISEASE, STAGE 3 (MODERATE) Status: Acute Current Visit: Yes - My Orders Last 24 Hours: My Active Orders 04/10/18 09:00 Cholecalciferol (Vitamin D3) [Vitamin D3] 2,000 units PO DAILY Digoxin [Lanoxin] 250 mcg PO DAILY 04/10/18 18:29 Ready for Discharge [RC] PER UNIT ROUTINE 04/11/18 05:11 BASIC METABOLIC PANEL,BMP [CHEM] AM CBC W/O DIFF,HEMOGRAM [HEME] AM 04/12/18 05:11 BASIC METABOLIC PANEL,BMP [CHEM] AM - Assessment Assessment:: 72F hx CAD s/p CABG x 5 in 2000 hx chronic persistent afib cardiomyopathy LVEF now 10% morbid obesity DM HTN HLP former smoker, with acute decompensated systolic HF. 2009 cath (outside hospital in [place]) reported 3 grafts were open ( to LAD, to OM1 , and OM2, and unknown other 2 grafts), noted RCA TC, SVG to RCA TC. There were no official cath report available 2012 reported stress test was done showed reversible inferior wall, noted to have mid high OM 99% stenosis, and got stented. No echo report available. 1. acute decompensated systolic HF: I am certain how much I can help her if she stayed here, we can be aggressive about her treatment, even though I feel that that may be slim chance for any available heroic treatment. I told her for being aggressive treatment for her heart she would need repeated cardiac cath, get her HR controlled, start her on medication for HF and repeating echo after her HF meds maximized. Because she has relocated so many places her cardiac history was hardly completed. Her urine out put now was poor, recommended to increase lasix to 80 IV, and see how she does in the next few hours, if her urine out was not responded, she would need to be transferred to tertiary care hospital where she can have invasive cardiac testing and monitoring. Her over all prognosis is poor. I will stop ACEI for now and continue metoprolol 100 BID and digoxin 250. I will stop her eliquis for now for possible invasive testing. Current echo showed LVEF 10%, it was noted 15-20% from the admission note back in 01/2018 in [place]. - Plan Plan:: Continue lasix 40 mg iV BID has good urinary output A flutter with RVR- metoprolol increased to 100 mg po BID , HR still 108 , cardiazem 120 mg po was added. Due to low EF , Cardiologyst recommended to d/c cardiazem and give her Digoxin 240 mg po daily.Records from [place] were reviewed. eliquis 5 mg by mouth twice a BID For hypothyroidism patient will be restarted on her home dose of thyroid medication seen. 150 mg by mouth daily,no cytomel due to increase T 3. For diabetes mellitus patient will be started on insulin on sliding scale before meals and at bedtime, f/up HB A1c , also lantus at bedtime Deconditioning patient will need physical therapy in a patient on therapy when medically stable As per Cardiologyst she will need Cardiac cath and AICD
[2018-04-11] MEDS: Insulin Aspart 100 Units/ML 3 ML Pen SUBCUT SCH (06:32)
[2018-04-11] MEDS: Levothyroxine 75 MCG Tab PO SCH (06:36)
[2018-04-11] MEDS: Cholecalciferol (Vitamin D3) 1,000 Unit Tab PO SCH (08:40)
[2018-04-11] MEDS: Sennosides 8.6 MG Tab PO SCH (08:41)
[2018-04-11] MEDS: Digoxin 250 MCG Tab PO SCH (08:41)
[2018-04-11] MEDS: Famotidine 20 MG Tab PO SCH (08:41)
[2018-04-11] MEDS: Metoprolol Tartrate 50 MG Tab PO SCH (08:42)
[2018-04-11] MEDS: Potassium Chloride 20 MEQ Tab.ER PO SCH (08:43)
[2018-04-11] MEDS: Furosemide 40 MG/4 ML VIAL IVPUSH SCH (08:45)
== END 2018-04-11 09:16 | DRG 291 ==
LOC: MW.ED 10:22 → MW.MS 12:58 → OBSVTOIN 04-09 07:30 → MW.MS 04-09 07:31
PROVIDERS: ADMIT Internal Medicine; ATTEND Internal Medicine
DX: I50.9 Heart failure, unspecified (principal); E11.9 Type 2 diabetes mellitus without complications; I10 Essential (primary) hypertension; I13.0 Hypertensive heart and chronic kidney disease with heart failure and stage 1 through stage 4 chronic kidney disease, or unspecified chronic kidney disease; R60.9 Edema, unspecified; I50.23 Acute on chronic systolic (congestive) heart failure; I25.10 Atherosclerotic heart disease of native coronary artery without angina pectoris; Z95.1 Presence of aortocoronary bypass graft; I48.0 Paroxysmal atrial fibrillation; E11.22 Type 2 diabetes mellitus with diabetic chronic kidney disease; E03.9 Hypothyroidism, unspecified; N18.3 Chronic kidney disease, stage 3 (moderate); E78.5 Hyperlipidemia, unspecified; Z87.891 Personal history of nicotine dependence; Z79.899 Other long term (current) drug therapy; Z88.5 Allergy status to narcotic agent; Z88.2 Allergy status to sulfonamides
CPT/HCPCS: 36415 ×4; 51702 ×5; 71045; 80048 ×3; 80053; 80061; 81001; 82306; 82607; 82962 ×9; 83036 ×2; 83735 ×3; 83880; 84100 ×3; 84439; 84443; 84481; 84484; 85025 ×2; 85027; 85610; 93005 ×2; 93306; 96374; 99285; A9270 ×26; J0696 ×3; J1650; J1815 ×2; J1940 ×6; J3475; J3490 ×2; J7050 ×2; 36410; 96365; 96366; 96372; 96375; 96376; 97110-GP; 97161-GP; 97165-GO; 97530-GP; 99283; G0378